=== PATIENT | female | born 1970 | race Caucasian/White ===

== ENCOUNTER 2017-05-11 15:53 | Emergency (ER) | payer MEDICARE, MEDICAID ==
[~2017-05-11] VITALS: Ht 162.6 cm; Wt 89.4 kg
[~2017-05-11 15:53] MED LIST: ACYC400T PO; ALPR1TAB2 PO; ALPR1TAB6 PO; BUSP15TA PO; CARB200T4 PO; CARV25TA2 PO; CYCL10TA2 PO; ESOM40CA PO; FLUT16SP NS; GABA-586 PO; HYDR-2762 PO; INSU300I SQ; LEVO150T5 PO; LEVO175T5 PO; LEVO500T59 PO; LIDO30CR TP; METF-620 PO; METO10TA PO; METO10TA81 PO; MIDO5TAB PO; MONT10TA9 PO; MULT-557 PO; OMEP20TA8 PO; ONDA4TAB12 PO; ONDA8TAB9 PO; OXYC-323 PO; OXYC1TAB7 PO; POLY17PO29 PO; PRAM0.25 PO; SERT100T8 PO; SUCR1TAB PO; TRAZ50TA15 PO
[2017-05-11 16:31] LABS: BASO % 1 % (0-3); EOS % 1 % (0-3); HEMOGLOBIN 11.6 g/dL (12.0-15.5); LYMPH # 1.5 x10^3/uL (1.0-4.8); LYMPH % 23 % (24-48); MEAN CORPUSCULAR HEMOGLOBIN 32 pg (25-35); MEAN CORPUSCULAR HGB CONC 35 g/dL (31-37); MEAN CORPUSCULAR VOLUME 92 fL (79-100); MONO % 5 % (0-9); NEUT % 71 % (31-73); PLATELET COUNT 209 x10^3/uL (140-400); RED BLOOD COUNT 3.61 x10^6/uL (3.50-5.40); RED CELL DISTRIBUTION WIDTH 12.6 % (11.5-14.5); WHITE BLOOD COUNT 6.6 x10^3/uL (4.0-11.0)
[2017-05-11 16:45] LABS: CALCIUM 8.4 mg/dL (8.5-10.1); CREATININE 0.9 mg/dL (0.6-1.0); GFR 66.8; POTASSIUM 3.7 mmol/L (3.5-5.1)
[2017-05-11 16:51] LABS: ALBUMIN 3.4 g/dL (3.4-5.0); DIRECT BILIRUBIN 0.1 mg/dL (0.0-0.2); MAGNESIUM 1.6 mg/dL (1.8-2.4); TOTAL BILIRUBIN 0.3 mg/dL (0.2-1.0); TOTAL PROTEIN 6.8 g/dL (6.4-8.2)
[2017-05-11 16:58] LABS: CKMB MASS 1.8 ng/mL (0.0-3.6)
--- NOTE | 2017-05-11 17:04 | RAD ---
AP chest radiograph 05/11/2017 Indication: Nontraumatic chest pain, asthma. Comparison: Chest 07/31/2014 Findings: Left chest wall cardiac connection device right atrial, right ventricular and coronary sinus pacer leads. Cardiac and mediastinal silhouettes are within normal limits. No pleural effusion, pneumothorax or focal consolidation. Impression: No acute cardiopulmonary abnormality.
[2017-05-11] MEDS ORDERED: ONDANSETRON PF 4 MG/2 ML VIAL. IV ONE (18:00)
--- NOTE | 2017-05-11 18:39 | PHYS DOC ---
Past Medical History Past Medical History: Arrhythmia, CHF, Hypotension Additional Past Medical Histor: Glaucoma Past Surgical History: Cholecystectomy, Hysterectomy, Pacemaker, Other Additional Past Surgical Histo: Bairiatric Surgery 06/2015,Mesh placed after hyster.for hernia,abd reconstru Alcohol Use: None Drug Use: None Adult General Chief Complaint Chief Complaint: CHEST PAIN HPI HPI Patient is a 47 year old female who presents with an episode that began about 1 :30 today of shortness of air, lightheadedness, heart pounding, and a "tight ache" in the middle of her back and on the left side of the back. The patient has a history of having a pacemaker defibrillator placed in 2008 or 2009, she has that checked regularly. She has never had an ND. She was actually seen in the doctor's office today for tooth pain with this whole thing started and ended up being brought here by EMS. The patient's symptoms of shortness of air, lightheadedness, and heart pounding lasted about 25 minutes but her pain in her left mid back lasted "a fleeting moment". She did not have any pain in the anterior of her chest at all. She has not had this type of pain before that she has had these episodes of shortness of air, lightheadedness, and heart pounding , which actually occurred before she got a pacemaker in the first place. Patient is status post bariatric surgery, [facility]. PCP Dr. Molina Carpenter Mold Dr. Garcia Review of Systems Review of Systems Constitutional: Denies fever or chills [] Eyes: Denies change in visual acuity, redness, or eye pain [] HENT: Denies nasal congestion or sore throat [] Respiratory: As in history of present illness Cardiovascular: As in history of present illness GI: Denies abdominal pain, nausea, vomiting, bloody stools or diarrhea [] : Denies dysuria or hematuria [] Musculoskeletal: Denies back pain or joint pain [] Integument: Denies rash or skin lesions [] Neurologic: Denies headache, focal weakness or sensory changes [] Current Medications Current Medications Current Medications Medications (Trade) Dose Ordered Sig/Benigno Start Time Stop Time Status Last Admin Dose Admin Ondansetron HCl (Zofran) 4 mg 1X ONCE 05/11/17 18:00 05/11/17 18:01 DC 05/11/17 18:02 4 MG Allergies Allergies Allergies Coded Allergies Type Severity Reaction Last Updated Verified Iodinated Contrast- Oral and IV Dye Allergy Severe Anaphylaxis 05/20/16 Yes exenatide Allergy Severe Hives, nausea/vomiting 05/20/16 Yes adhesive tape Allergy Mild Rash 05/20/16 Yes Sulfa (Sulfonamide Antibiotics) Adverse Reaction Intermediate Nausea and Vomiting 05/20/16 Yes codeine Adverse Reaction Intermediate Nausea and Vomiting 05/19/16 Yes Physical Exam Physical Exam Constitutional: Well developed, well nourished, no acute distress, non-toxic appearance. Warm and dry, vital signs stable, alert and mentating normally. HENT: Normocephalic, atraumatic, bilateral external ears normal, nose normal. [ ] Eyes: conjunctiva normal, no discharge. [] Neck: Normal range of motion, no stridor. [] Cardiovascular:Heart rate regular rhythm, no murmur [] Lungs & Thorax: Bilateral breath sounds clear to auscultation [] Abdomen: Bowel sounds normal, soft, no tenderness, no masses, no pulsatile masses. [] Skin: Warm, dry, no erythema, no rash. [] Back: No tenderness, no CVA tenderness. [] Extremities: No tenderness, no cyanosis, no clubbing, ROM intact, no edema. [] Neurologic: Alert and oriented X 3, normal motor function, normal sensory function, no focal deficits noted. [] Current Patient Data Vital Signs Vital Signs Date Time Temp Pulse Resp B/P (MAP) Pulse Ox O2 Delivery O2 Flow Rate FiO2 05/11/17 18:40 50 18 154/70 (98) 99 Room Air 05/11/17 16:10 97.9 97.9 Lab Values Laboratory Tests Test 05/11/17 16:00 White Blood Count 6.6 x10^3/uL (4.0-11.0) Red Blood Count 3.61 x10^6/uL (3.50-5.40) Hemoglobin 11.6 g/dL (12.0-15.5) L Hematocrit 33.0 % (36.0-47.0) L Mean Corpuscular Volume 92 fL (79-100) Mean Corpuscular Hemoglobin 32 pg (25-35) Mean Corpuscular Hemoglobin Concent 35 g/dL (31-37) Red Cell Distribution Width 12.6 % (11.5-14.5) Platelet Count 209 x10^3/uL (140-400) Neutrophils (%) (Auto) 71 % (31-73) Lymphocytes (%) (Auto) 23 % (24-48) L Monocytes (%) (Auto) 5 % (0-9) Eosinophils (%) (Auto) 1 % (0-3) Basophils (%) (Auto) 1 % (0-3) Neutrophils # (Auto) 4.7 x10^3uL (1.8-7.7) Lymphocytes # (Auto) 1.5 x10^3/uL (1.0-4.8) Monocytes # (Auto) 0.3 x10^3/uL (0.0-1.1) Eosinophils # (Auto) 0.0 x10^3/uL (0.0-0.7) Basophils # (Auto) 0.0 x10^3/uL (0.0-0.2) Sodium Level 141 mmol/L (136-145) Potassium Level 3.7 mmol/L (3.5-5.1) Chloride Level 106 mmol/L (98-107) Carbon Dioxide Level 24 mmol/L (21-32) Anion Gap 11 (6-14) Blood Urea Nitrogen 15 mg/dL (7-20) Creatinine 0.9 mg/dL (0.6-1.0) Estimated GFR (Cockcroft-Gault) 66.8 Glucose Level 110 mg/dL (70-99) H Calcium Level 8.4 mg/dL (8.5-10.1) L Magnesium Level 1.6 mg/dL (1.8-2.4) L Total Bilirubin 0.3 mg/dL (0.2-1.0) Direct Bilirubin 0.1 mg/dL (0.0-0.2) Aspartate Amino Transferase (AST) 17 U/L (15-37) Alanine Aminotransferase (ALT) 19 U/L (14-59) Alkaline Phosphatase 128 U/L (46-116) H Creatine Kinase 111 U/L (26-192) Creatine Kinase MB (Mass) 1.8 ng/mL (0.0-3.6) Creatine Kinase MB Relative Index 1.6 % (0-4) Troponin I Quantitative < 0.017 ng/mL (0.000-0.055) CB-Xdh-R-Type Natriuretic Peptide 680 pg/mL (0-124) H Total Protein 6.8 g/dL (6.4-8.2) Albumin 3.4 g/dL (3.4-5.0) Laboratory Tests 05/11/17 16:00 Laboratory Tests 05/11/17 16:00 EKG EKG 12-lead EKG read by me. Fully paced. Heart rate 52. Prolonged QRS consistent with paced rhythm. There are no ST elevations or depressions. No STEMI. 1555 [] Radiology/Procedures Radiology/Procedures One view portable chest x-ray read by the radiologist. Heart size is normal, lungs clear, pacemaker/defibrillator is noted. No acute cardiopulmonary mildly. [] Course & Med Decision Making Course & Med Decision Making Pertinent Labs and Imaging studies reviewed. (See chart for details) 47-year-old female presents with a nonspecific episode of short of air, lightheaded, heart pounding, with a very brief episode of left upper back pain that lasted "a fleeting moment". She does not have a history of coronary artery disease, she does have a pacemaker defibrillator. Patient's symptoms are largely resolved on arrival to ED. Labs, EKG unremarkable. However, she does have low magnesium. This could be from her bariatric surgery. I doubt if this is related to her symptoms but I will advise her to replace that. 1830 recheck patient. She sitting up on the bed, states that she feels better than she did when she came in, she has not had any specific treatment other than a dose of Zofran. Discussed reassuringly normal findings with the patient. I believe she is stable for discharge. See instructions for plan. [] Dragon Disclaimer Dragon Disclaimer This electronic medical record was generated, in whole or in part, using a voice recognition dictation system. Departure Departure Impression: Primary Impression: Light-headed feeling Disposition: 01 HOME, SELF-CARE Condition: IMPROVED Referrals: CHANDU MOLINA MD (PCP) Additional Instructions: As we discussed, tests in the emergency department today were all normal except that your magnesium is a little bit low. Check with your doctor on whether you should be replacing her magnesium due to your previous surgery. If your symptoms persist, follow-up with your pull worker. FARIDEH MCCLENDON MD May 11, 2017 18:39
[2017-05-11 18:40] VITALS: BP 154/70
--- NOTE | 2017-05-12 00:39 | EKG ---
[facility] [address] [place] [address] Test Date: 2017-05-11 Test Time: 15:55:54 Pat Name: TYLER PEÑA Department: Room: Gender: F Stator Connector: : 1970 Requested By: FARIDEH MCCLENDON Order Number: [id number] Reading MD: Frank Ray Measurements Intervals [place] Rate: 52 P: 0 SD: 178 QRS: -34 QRSD: 96 T: 103 QT: 478 QTc: 451 Interpretive Statements PT IN SINUS RHYTHM WITH VENTRICULAR PACING TRACKING NORMALLY Electronically Signed On 05-12-2017 17:02:02 CDT by Frank Ray
== END 2017-05-11 18:56 | disposition home or self-care (01) ==
LOC: ER 15:53
DX: R42 Dizziness and giddiness (principal); R06.02 Shortness of breath; K08.89 Other specified disorders of teeth and supporting structures; I50.9 Heart failure, unspecified; J45.909 Unspecified asthma, uncomplicated; Z95.0 Presence of cardiac pacemaker; Z98.84 Bariatric surgery status; Z98.890 Other specified postprocedural states; Z88.5 Allergy status to narcotic agent; Z88.2 Allergy status to sulfonamides; Z88.8 Allergy status to other drugs, medicaments and biological substances; Z91.041 Radiographic dye allergy status
CPT/HCPCS: 36415; 71010; 80048; 80076; 82553; 83735; 83880; 84484; 85027; 93005; 96374; 99285; J2405

== ENCOUNTER → 2017-06-11 | Outpatient (CLI) | payer BC, MEDICAID ==
--- NOTE | 2017-06-11 14:31 | CARD ---
APPROVED REPORT EXAM: Two-dimensional and M-mode echocardiogram with Doppler and color Doppler. Other Information Quality : GoodHR: 59bpm Rhythm : Bradycardia INDICATION NICM 2D DIMENSIONS RVDd3.3 (2.9-3.5cm)Left Atrium(2D)4.6 (1.6-4.0cm) IVSd0.8 (0.7-1.1cm)Aortic Root(2D)3.0 (2.0-3.7cm) LVDd7.1 (3.9-5.9cm)LVOT Diameter1.2 (1.8-2.4cm) PWd0.8 (0.7-1.1cm)LVDs5.5 (2.5-4.0cm) FS (%) 23.0 %SV120.1 ml LVEF(%)44.9 (>50%) M-Mode DIMENSIONS LVDd5.62 (4.0-5.6cm) Aortic Valve LVOT Peak Ryan.102.4cm/s Mitral Valve MV E Puwgjgbm434.0cm/sMV E Peak Gr.5mmHg MV DECEL [id number] A Osxazeys463.6cm/s MV E Mean Gr.2mmHgE/A Ratio0.9 MV A [id number] Planimetry3.17cm2 Pulmonary Valve PV Peak Eavpqjkx048.0cm/s Tricuspid Valve TR P. Djcuchko025ey/sTR Peak Gr.23mmHg Pulmonary Vein S1 Mkfbwkok28.8cm/sD2 Mkpdojls35.3cm/s PVa hpmfmisd43ckaf LEFT VENTRICLE The Left Ventricle is mildly dilated. There is normal left ventricular wall thickness. Left ventricle systolic function is mildly impaired. The Ejection Fraction is 40-45%. There is mild global hypokine sis of the left ventricle. Transmitral Doppler flow pattern is abnormal. No left ventricle thrombus n oted on this study. RIGHT VENTRICLE The right ventricle is normal size. There is normal right ventricular wall thickness. The right ventr icular systolic function is normal. There are pacemaker and defibrillator leads in the right ventricl e. ATRIA The left atrium is mildly dilated. The right atrium size is normal. The interatrial septum is intact with no evidence for an atrial septal defect or patent foramen ovale as noted on 2-D or Doppler imagi ng. AORTIC VALVE The aortic valve is mildly sclerotic. The aortic valve is trileaflet. Doppler and Color Flow revealed no significant aortic regurgitation. There is no significant aortic valvular stenosis. MITRAL VALVE The mitral valve leaflets are thickened. There is no evidence of mitral valve prolapse. There is no m itral valve stenosis. Doppler and Color Flow revealed trace mitral regurgitation. TRICUSPID VALVE Doppler and Color Flow revealed trace tricuspid regurgitation. The pulmonary artery systolic pressure is estimated at 28 mmHg. There is no pulmonary hypertension. PULMONIC VALVE The pulmonary valve is not well visualized but appears to open adequately. Doppler and Color Flow rev ealed no pulmonic valvular regurgitation. There is no pulmonic valvular stenosis by spectral Doppler. GREAT VESSELS The aortic root is normal in size. The ascending aorta is normal in size. The pulmonary artery is nor mal. The IVC is normal in size and collapses >50% with inspiration. PERICARDIAL EFFUSION There is no evidence of significant pericardial effusion. Critical Notification Critical Value: No <Conclusion> Left ventricle systolic function is mildly impaired. The Ejection Fraction is 40-45%. Trace mitral regurgitation. Trace tricuspid regurgitation. The pulmonary artery systolic pressure is estimated at 28 mmHg. There is no evidence of significant pericardial effusion.
== END | disposition home or self-care (01) ==
LOC: ECHO 12:57
PROVIDERS: ATTEND Internal Medicine Cardiovascular Disease
DX: I34.0 Nonrheumatic mitral (valve) insufficiency (principal); I07.1 Rheumatic tricuspid insufficiency
CPT/HCPCS: 93306

== ENCOUNTER 2017-09-24 09:16 | Emergency (ER) | payer BC, MEDICAID ==
[~2017-09-24] VITALS: Ht 160 cm; Wt 89.4 kg
[2017-09-24 09:32] VITALS: BP 163/71
[2017-09-24] MEDS ORDERED: FLUT9.9S NS (09:54)
[2017-09-24] MEDS ORDERED: GUAI-108 PO (09:54)
[2017-09-24] MEDS ORDERED: MOXI400T PO (09:54)
[2017-09-24] MEDS ORDERED: OXYC-323 PO (09:55)
--- NOTE | 2017-09-24 10:00 | PHYS DOC ---
Past Medical History Past Medical History: Arrhythmia, CHF, Hypotension Additional Past Medical Histor: Glaucoma Past Surgical History: Cholecystectomy, Hysterectomy, Pacemaker, Other Additional Past Surgical Histo: Bairiatric Surgery 06/2015,Mesh placed after hyster.for hernia,abd reconstru Alcohol Use: None Drug Use: None Adult General Chief Complaint Chief Complaint: DENTAL PROBLEM HPI HPI Patient is a pleasant 47-year-old female with a known history of chronic sinusitis and sinus problems who complains of dentalgia and sinus pressure to the. She has been on 2 short course of antibiotics to include amoxicillin and Ceftinir over the last 6 weeks. She typically has improvement of her symptoms at the conclusion of these anabiotic courses. Her symptoms began today aggressively worse over the left frontal portion of her face. She describes as a dull ache and throb as radiation from the top of her teeth to the left side of the nose. She has been printed discharge without fevers or chills. On occasion because she is so anxious she will get some palpitations which are not new but associated with these pains. She has an AICD placed likely secondary to sick sinus syndrome diagnosed after she was having some dizzy spells. She's been symptom free at that point. She denies any trauma to her face, denies any problems swallowing, denies any ear pain, denies any cough or other symptoms. Patient's pain at this time is about a 4 of 10 Review of Systems Review of Systems Constitutional: Denies fever or chills [] Eyes: Denies change in visual acuity, redness, or eye pain [] HENT: Patient does have complaint of significant nasal congestion described as purulent with sinus pressure without swelling. Respiratory: Denies cough or shortness of breath [] Cardiovascular: No additional information not addressed in HPI [] GI: Denies abdominal pain, nausea, vomiting, bloody stools or diarrhea [] : Denies dysuria or hematuria [] Musculoskeletal: Denies back pain or joint pain [] Integument: Denies rash or skin lesions [] Neurologic: Denies headache, focal weakness or sensory changes [] Endocrine: Denies polyuria or polydipsia [] All other systems were reviewed and found to be within normal limits, except as documented in this note. Allergies Allergies Allergies Coded Allergies Type Severity Reaction Last Updated Verified Iodinated Contrast- Oral and IV Dye Allergy Severe Anaphylaxis 05/20/16 Yes exenatide Allergy Severe Hives, nausea/vomiting 05/20/16 Yes adhesive tape Allergy Mild Rash 05/20/16 Yes Sulfa (Sulfonamide Antibiotics) Adverse Reaction Intermediate Nausea and Vomiting 05/20/16 Yes codeine Adverse Reaction Intermediate Nausea and Vomiting 05/19/16 Yes Physical Exam Physical Exam The patient's vital signs recorded on the chart patient and be hypertensive which is not new for patient. Constitutional: Well developed, well nourished, no acute distress, non-toxic appearance. [] HENT: Normocephalic, atraumatic, bilateral external ears normal, oropharynx moist, no oral exudates, patient has tenderness to palpation over the frontal sinus on the left. She has a mucopurulent discharge noted within the nasal passage. She has marked dental caries of the upper dentition between teeth 7 and 12 with some mild erosion of the enamel without gingival inflammation or signs of abscess. She has tenderness to palpation of her palpitation of these teeth to percussion there is no swelling to the face or area of erythema of the skin[] Eyes: PERRLA, EOMI, conjunctiva normal, no discharge. [] Neck: Normal range of motion, no tenderness, supple, no stridor. Patient images no cervical lymphadenopathy [] Cardiovascular:Heart rate regular rhythm, no murmur [] Lungs & Thorax: Bilateral breath sounds clear to auscultation [] Skin: Warm, dry, no erythema, no rash. [] Extremities: No tenderness, no cyanosis, no clubbing, ROM intact, no edema. [] Neurologic: Alert and oriented X 3, normal motor function, normal sensory function, no focal deficits noted. Patient images normal speech[] Psychologic: Affect normal, judgement normal, mood normal. [] Current Patient Data Vital Signs Vital Signs Date Time Temp Pulse Resp B/P (MAP) Pulse Ox O2 Delivery O2 Flow Rate FiO2 09/24/17 09:32 98.0 77 16 163/71 (101) 98 Room Air 98.0 EKG EKG []Recent EKG interpreted by me at 9:57 AM 09/24/2017 demonstrates a paced rhythm with a heart rate of 56. There is no ST segment or T-wave changes consistent with acute coronary ischemia Radiology/Procedures Radiology/Procedures [] Course & Med Decision Making Course & Med Decision Making Pertinent Labs and Imaging studies reviewed. (See chart for details) []Patient presents with sinusitis and dentalgia associated with dental caries and chronic sinusitis. She will placed on appropriate antibiotics and close follow-up with her primary care physician and ENT referral. She is nontoxic in appearance is no evidence of abscess within the face or dental origin infection out because a local abscess within the gingival line. Patient's EKG is unremarkable is asymptomatically at this time Dragon Disclaimer Dragon Disclaimer This electronic medical record was generated, in whole or in part, using a voice recognition dictation system. Departure Departure Impression: Primary Impression: Sinusitis chronic, frontal Additional Impression: Palpitations Disposition: HOME, SELF-CARE Condition: STABLE Referrals: CHANDU MOLINA MD (PCP) CRISTIANO FLETCHER MD Patient Instructions: Dental Pain, Palpitations, Sinusitis Additional Instructions: discharge: I've spoken with the patient and/or caregivers. I've explained the patient's condition, diagnosis and treatment plan based on information available to me at this time. I've answered the patient's and/or caregivers questions and addressed any concerns. The patient and/or caregivers have a good understanding the patient's diagnosis, condition and treatment plan as can be expected at this point. Vital signs have been stabilized. The patient's condition is stable for discharge from the emergency department. The patient will pursue further outpatient evaluation with her primary care provider or other designated consulting physician as outlined in the discharge instructions. Patient and/or caregivers are agreeable to this plan of care and follow-up instructions have been explained in detail. The patient and/or caregivers have received these instructions in written format and expressed understanding of these discharge instructions. The patient and her caregivers are aware that if any significant change in condition or worsening of symptoms should prompt him to immediately return to this of the closest emergency department. If an emergent department is not readily available I would encourage him to call 911. Scripts Oxycodone/Apap 5-325 (PERCOCET 5-325 MG TABLET) 1 Each Tablet 1-2 TAB PO Q4-6HRS, #10 TAB Prov: KELLY SOW MD 09/24/17 Guaifenesin/Dextromethorphan (MUCINEX DM ER 600-30 MG TABLET) 1 Each Tab.er.12h 1 TAB PO PRN Q12HRS, #20 TAB Prov: KELLY SOW MD 09/24/17 Fluticasone Propionate (Flonase Allergy Relief) 9.9 Ml [place].susp 2 SPRAYS NS DAILY for 7 Days, BOTTLE Prov: KELLY SOW MD 09/24/17 Moxifloxacin Hcl (AVELOX) 400 Mg Tablet 1 TAB PO DAILY, #10 TAB Prov: KELLY SOW MD 09/24/17 Problem Qualifiers KELLY SOW MD Sep 24, 2017 10:00
--- NOTE | 2017-09-24 10:36 | EKG ---
[facility] [address] [place] [address] Test Date: 2017-09-24 Test Time: 09:57:23 Pat Name: TYLER PEÑA Department: Room: Gender: F Merchant Mariner: : 1970 Requested By: KELLY SOW Order Number: [id number] Reading MD: Measurements Intervals [place] Rate: 56 P: 0 NE: 172 QRS: -37 QRSD: 24 T: -28 QT: 422 QTc: 409 Interpretive Statements SINUS RHYTHM ABNORMAL LEFT AXIS DEVIATION LVH WITH REPOLARIZATION ABNORMALITY ABNORMAL ECG No previous ECG available for comparison
== END 2017-09-24 10:50 | disposition home or self-care (01) ==
LOC: ER 09:16
DX: J32.1 Chronic frontal sinusitis (principal); R00.2 Palpitations; K02.9 Dental caries, unspecified; I50.9 Heart failure, unspecified; H40.9 Unspecified glaucoma; I95.9 Hypotension, unspecified; Z95.0 Presence of cardiac pacemaker; Z88.2 Allergy status to sulfonamides; Z95.810 Presence of automatic (implantable) cardiac defibrillator; Z90.49 Acquired absence of other specified parts of digestive tract; Z90.710 Acquired absence of both cervix and uterus; Z91.041 Radiographic dye allergy status; Z88.8 Allergy status to other drugs, medicaments and biological substances; Z88.5 Allergy status to narcotic agent; Z91.048 Other nonmedicinal substance allergy status
CPT/HCPCS: 93005; 99283-25

== ENCOUNTER → 2017-12-21 | Day surgery (SDC) | payer BC, MEDICAID ==
[~2017-12-21] MED LIST changes: -ACYC400T PO; -ALPR1TAB2 PO; -ALPR1TAB6 PO; -BUSP15TA PO; -CARB200T4 PO; -CARV25TA2 PO; -CYCL10TA2 PO; -ESOM40CA PO; -FLUT16SP NS; -GABA-586 PO; -HYDR-2762 PO; -INSU300I SQ; +IV RINGERS,LACTATED 1000ML 1,000 ML IV; -LEVO150T5 PO; -LEVO175T5 PO; -LEVO500T59 PO; -LIDO30CR TP; -METF-620 PO; -METO10TA PO; -METO10TA81 PO; -MIDO5TAB PO; -MONT10TA9 PO; -MULT-557 PO; -OMEP20TA8 PO; -ONDA4TAB12 PO; -ONDA8TAB9 PO; -OXYC-323 PO; -OXYC1TAB7 PO; -POLY17PO29 PO; -PRAM0.25 PO; +PROPOFOL 20 ML IV; -SERT100T8 PO; -SUCR1TAB PO; -TRAZ50TA15 PO
== END ==
LOC: ENDOS 11:45
DX: K21.0 Gastro-esophageal reflux disease with esophagitis (principal); D50.9 Iron deficiency anemia, unspecified; I25.10 Atherosclerotic heart disease of native coronary artery without angina pectoris; I11.0 Hypertensive heart disease with heart failure; I50.9 Heart failure, unspecified; E11.9 Type 2 diabetes mellitus without complications; E78.5 Hyperlipidemia, unspecified; F32.9 Major depressive disorder, single episode, unspecified; F41.9 Anxiety disorder, unspecified; I42.9 Cardiomyopathy, unspecified; E03.9 Hypothyroidism, unspecified; Z85.42 Personal history of malignant neoplasm of other parts of uterus; Z88.2 Allergy status to sulfonamides; Z88.5 Allergy status to narcotic agent; Z95.0 Presence of cardiac pacemaker; M19.90 Unspecified osteoarthritis, unspecified site; Z90.49 Acquired absence of other specified parts of digestive tract; Z82.49 Family history of ischemic heart disease and other diseases of the circulatory system
CPT/HCPCS: 43235; J2704

== ENCOUNTER 2018-01-31 16:47 | Inpatient (IN) | payer BC, MEDICAID ==
[2018-01-31 17:13] LABS: ADD MAN DIFF? NO
[2018-01-31 17:15] LABS: BASO % 1 % (0-3); EOS % 1 % (0-3); HEMATOCRIT 22.7 % (36.0-47.0); HEMOGLOBIN 7.1 g/dL (12.0-15.5); LYMPH # 1.3 x10^3/uL (1.0-4.8); LYMPH % 36 % (24-48); MEAN CORPUSCULAR HEMOGLOBIN 22 pg (25-35); MEAN CORPUSCULAR HGB CONC 31 g/dL (31-37); MEAN CORPUSCULAR VOLUME 70 fL (79-100); MONO # 0.4 x10^3/uL (0.0-1.1); MONO % 10 % (0-9); NEUT % 53 % (31-73); PLATELET COUNT 238 x10^3/uL (140-400); RED BLOOD COUNT 3.27 x10^6/uL (3.50-5.40); RED CELL DISTRIBUTION WIDTH 17.4 % (11.5-14.5); WHITE BLOOD COUNT 3.8 x10^3/uL (4.0-11.0)
[2018-01-31 17:30] LABS: ANION GAP 8 (6-14); BLOOD UREA NITROGEN 18 mg/dL (7-20); BUN/CREATININE RATIO 20 (6-20); CALCIUM 8.3 mg/dL (8.5-10.1); CARBON DIOXIDE 26 mmol/L (21-32); CHLORIDE 107 mmol/L (98-107); CREATININE 0.9 mg/dL (0.6-1.0); GFR 66.8; GLUCOSE 110 mg/dL (70-99); POTASSIUM 3.7 mmol/L (3.5-5.1); SODIUM 141 mmol/L (136-145)
[2018-01-31 17:35] LABS: ALBUMIN 3.3 g/dL (3.4-5.0); ALBUMIN/GLOBULIN RATIO 0.9 (1.0-1.7); ALK PHOS 145 U/L (46-116); ALT (SGPT) 27 U/L (14-59); AST (SGOT) 18 U/L (15-37); TOTAL BILIRUBIN 0.3 mg/dL (0.2-1.0)
[2018-01-31 17:37] LABS: ANISOCYTOSIS SLIGHT; HYPOCHROMIA MOD; MICROCYTOSIS MARKED; PLT ESTIMATE ADEQUATE (ADEQUATE); POLYCHROMASIA SLIGHT
[2018-01-31 18:43] LABS: TROPONINI < 0.017 ng/mL (0.000-0.055)
[2018-01-31] MEDS ORDERED: ONDANSETRON PF 4 MG/2 ML VIAL. IV (19:30)
[2018-01-31] MEDS ORDERED: ALPRAZolam 1 MG TABLET PO (21:00)
[2018-01-31] MEDS ORDERED: NON FORMULARY ITEM (Albuterol Sulfate (Proair Hfa Inhaler) 1 PUFF) INH (21:00)
[2018-01-31] MEDS ORDERED: ALBUTEROL SULFATE 8GM INHALER. IH (21:00)
[2018-01-31] MEDS ORDERED: traZODone 50 MG TABLET. PO (21:00)
[2018-01-31] MEDS ORDERED: ALBUTEROL SULFATE 2.5 MG/3 ML NEBU. NEB (21:15)
[2018-01-31] MEDS: AMOXICILLIN 250 MG CAPSULE. PO (21:59)
[2018-01-31] MEDS: DULoxetine HCL 30 MG CAPSULE.DR PO (21:59)
[2018-01-31] MEDS: diphenhydrAMINE 50 MG/ML VIAL IVP (22:43)
[2018-01-31] MEDS: ACETAMINOPHEN 325 MG TABLET. PO (22:43)
[2018-01-31 23:09] LABS: IMMEDIATE SPIN CROSSMATCH 1 1
[2018-02-01] MEDS: LEVOTHYROXINE 150 MCG TABLET PO (06:16)
[2018-02-01 08:22] LABS: ADD MAN DIFF? NO
[2018-02-01 08:28] LABS: BASO % 1 % (0-3); EOS # 0.1 x10^3/uL (0.0-0.7); EOS % 2 % (0-3); HEMATOCRIT 24.6 % (36.0-47.0); LYMPH # 1.2 x10^3/uL (1.0-4.8); LYMPH % 35 % (24-48); MEAN CORPUSCULAR HEMOGLOBIN 23 pg (25-35); MEAN CORPUSCULAR HGB CONC 32 g/dL (31-37); MEAN CORPUSCULAR VOLUME 71 fL (79-100); MONO # 0.3 x10^3/uL (0.0-1.1); MONO % 9 % (0-9); NEUT # 1.8 x10^3uL (1.8-7.7); NEUT % 54 % (31-73); PLATELET COUNT 188 x10^3/uL (140-400); RED BLOOD COUNT 3.48 x10^6/uL (3.50-5.40); RED CELL DISTRIBUTION WIDTH 17.9 % (11.5-14.5); WHITE BLOOD COUNT 3.3 x10^3/uL (4.0-11.0)
[2018-02-01] MEDS: PANTOPRAZOLE 40 MG TABLET.DR. PO (09:51)
[2018-02-01] MEDS: ACYCLOVIR 200 MG CAPSULE. PO (09:51)
[2018-02-01] MEDS: CETIRIZINE HCL 10 MG TABLET. PO (09:51)
[2018-02-01] MEDS: guaiFENesin DM 600/30MG 1 TAB TAB.ER.12H PO (09:51)
[2018-02-01] MEDS: AMOXICILLIN 250 MG CAPSULE. PO ×3 (09:51→20:28)
[2018-02-01] MEDS: FLUTICASONE 50MCG/NASAL SPRAY 16GM BOTTLE. NS (09:54)
[2018-02-01] MEDS: HYDROcodone/APAP 5/325MG 1 TAB TABLET PO ×2 (11:03→20:30)
[2018-02-01] MEDS: IRON SUCROSE COMPLEX 500 MG in IV NORMAL SALINE 250ML 250 ML IV (16:07)
[2018-02-01 17:26] LABS: BILIRUBIN,URINE NEGATIVE (NEG); CLARITY,URINE CLEAR; COLOR,URINE YELLOW; GLUCOSE,URINE NEGATIVE (NEG); NITRITE,URINE NEGATIVE (NEG); PH,URINE 6.5; PROTEIN,URINE NEGATIVE (NEG-TRACE)
[2018-02-01 17:44] LABS: BACTERIA,URINE 0 /HPF (0-FEW); RBC,URINE 0 /HPF (0-2); SQUAMOUS EPITHELIAL CELL,UR FEW /LPF; WBC,URINE 0 /HPF (0-4)
[2018-02-01] MEDS: DULoxetine HCL 30 MG CAPSULE.DR PO (20:28)
[2018-02-01] MEDS: LACTOBACILLUS RHAMNOSUS GG 1 CAPSULE. PO (20:29)
[2018-02-01 22:48] LABS: FOLATE 13.89 ng/ml (3.2-20.0)
[2018-02-01 22:48] LABS: VITAMIN-B12 192 pg/mL (247-911)
[2018-02-02] MEDS: LEVOTHYROXINE 150 MCG TABLET PO (06:12)
[2018-02-02 06:35] LABS: HEMATOCRIT 26.7 % (36.0-47.0); HEMOGLOBIN 8.5 g/dL (12.0-15.5); MEAN CORPUSCULAR HEMOGLOBIN 23 pg (25-35); MEAN CORPUSCULAR HGB CONC 32 g/dL (31-37); MEAN CORPUSCULAR VOLUME 71 fL (79-100); PLATELET COUNT 229 x10^3/uL (140-400); RED BLOOD COUNT 3.74 x10^6/uL (3.50-5.40); RED CELL DISTRIBUTION WIDTH 18.6 % (11.5-14.5)
[2018-02-02 07:15] LABS: ANION GAP 10 (6-14); BLOOD UREA NITROGEN 14 mg/dL (7-20); CALCIUM 8.5 mg/dL (8.5-10.1); CARBON DIOXIDE 27 mmol/L (21-32); CHLORIDE 105 mmol/L (98-107); CREATININE 0.7 mg/dL (0.6-1.0); GFR 89.3; GLUCOSE 108 mg/dL (70-99); POTASSIUM 3.9 mmol/L (3.5-5.1); SODIUM 142 mmol/L (136-145)
[2018-02-02] MEDS: FLUTICASONE 50MCG/NASAL SPRAY 16GM BOTTLE. NS (08:50)
[2018-02-02] MEDS: LACTOBACILLUS RHAMNOSUS GG 1 CAPSULE. PO (08:51)
[2018-02-02] MEDS: AMOXICILLIN 250 MG CAPSULE. PO (08:51)
[2018-02-02] MEDS: guaiFENesin DM 600/30MG 1 TAB TAB.ER.12H PO (08:51)
[2018-02-02] MEDS: ACYCLOVIR 200 MG CAPSULE. PO (08:51)
[2018-02-02] MEDS: CETIRIZINE HCL 10 MG TABLET. PO (08:51)
[2018-02-02] MEDS: PANTOPRAZOLE 40 MG TABLET.DR. PO (08:53)
[2018-02-02] MEDS: CYANOCOBALAMIN (VITAMIN B-12) 1,000 MCG/ML VIAL IM (11:07)
== END 2018-02-02 12:00 | disposition home or self-care (01) | DRG 809 ==
LOC: ER 16:47 → 5 SOUTH 17:45
PROC: 30233N1 Transfusion of Nonautologous Red Blood Cells into Peripheral Vein, Percutaneous Approach (ICD-10-PCS; principal; 2018-01-31)
DX: D61.818 Other pancytopenia (principal); I42.9 Cardiomyopathy, unspecified; I11.0 Hypertensive heart disease with heart failure; I50.9 Heart failure, unspecified; D50.9 Iron deficiency anemia, unspecified; E03.9 Hypothyroidism, unspecified; E11.9 Type 2 diabetes mellitus without complications; K62.5 Hemorrhage of anus and rectum; E78.5 Hyperlipidemia, unspecified; K29.70 Gastritis, unspecified, without bleeding; F32.9 Major depressive disorder, single episode, unspecified; H40.9 Unspecified glaucoma; I25.10 Atherosclerotic heart disease of native coronary artery without angina pectoris; K08.89 Other specified disorders of teeth and supporting structures; K21.9 Gastro-esophageal reflux disease without esophagitis; K43.2 Incisional hernia without obstruction or gangrene; K64.9 Unspecified hemorrhoids; Z82.49 Family history of ischemic heart disease and other diseases of the circulatory system; Z85.43 Personal history of malignant neoplasm of ovary; Z83.3 Family history of diabetes mellitus; Z90.49 Acquired absence of other specified parts of digestive tract; Z90.710 Acquired absence of both cervix and uterus; Z91.041 Radiographic dye allergy status; Z88.5 Allergy status to narcotic agent; Z88.2 Allergy status to sulfonamides; Z88.8 Allergy status to other drugs, medicaments and biological substances; Z91.048 Other nonmedicinal substance allergy status
CPT/HCPCS: 36415; 71045; 80048; 80053; 81001; 82607; 82746; 84484; 85025; 85027; 86850; 86900; 86901; 86920; 93005; 99285-25; J1200; J1756; J3420; J7050; P9016

== ENCOUNTER → 2018-12-06 | Outpatient (CLI) | payer BC, MEDICAID ==
[2018-02-02 11:00] VITALS: BP 127/70
[~2018-12-06] MED LIST changes: +ACYC400T PO; +ALBU2.5V8 IH; +ALBU2.5V8 INH; +ALPR1TAB2 PO; +ALPR1TAB6 PO; +AMOX500T PO; +BUSP15TA PO; +CARB200T4 PO; +CARV25TA2 PO; +CYAN10002 IM; +CYCL10TA2 PO; +DULO30CA2 PO; +EPIPEN0.3 MG/0.3 IJ; +ESOM40CA PO; +FLUT16SP NS; +FLUT9.9S NS; +GABA300C18 PO; +GUAI-108 PO; +HYDR-2761 PO; +HYDR-2765 PO; +INSU300I SQ; -IV RINGERS,LACTATED 1000ML 1,000 ML IV; +LEVO150T5 PO; +LEVO175T5 PO; +LEVO500T59 PO; +LIDO30CR TP; +LORA10TA68 PO; +METF10007 PO; +METO10TA PO; +METO10TA81 PO; +MIDO5TAB PO; +MONT10TA9 PO; +MOXI400T PO; +MULT-557 PO; +OMEP20TA8 PO; +ONDA4TAB12 PO; +ONDA8TAB9 PO; +OXYC1TAB15 PO; +OXYC1TAB7 PO; +PANT40GR PO; +POLY17PO29 PO; +PRAM0.25 PO; -PROPOFOL 20 ML IV; +SERT100T8 PO; +SUCR1TAB PO; +TRAZ-118 PO; +[UNRECOGNIZED DRUG - OTHER]; +[UNRECOGNIZED DRUG - OTHER]; +[UNRECOGNIZED DRUG - OTHER]; +[UNRECOGNIZED DRUG - REMARK]
--- NOTE | 2018-12-06 10:00 | CARD ---
MR#: [id number] Date of Study: 12/06/2018 Ordering Physician: ALYCE GARCIA, Referring Physician: ALYCE GARCIA Tech: Maddi Hernandez RDCS APPROVED REPORT EXAM: Two-dimensional and M-mode echocardiogram with Doppler and color Doppler. Other Information Quality : AverageHR: 50bpm Rhythm : Bradycardia INDICATION Congestive Heart Failure 2D DIMENSIONS RVDd2.4 (2.9-3.5cm)Left Atrium(2D)4.6 (1.6-4.0cm) IVSd0.9 (0.7-1.1cm)Aortic Root(2D)3.0 (2.0-3.7cm) LVDd6.4 (3.9-5.9cm)LVOT Diameter1.9 (1.8-2.4cm) PWd1.2 (0.7-1.1cm)LVDs5.2 (2.5-4.0cm) FS (%) 18.9 %SV79.6 ml LVEF(%)38.2 (>50%) M-Mode DIMENSIONS Left Atrium(MM)4.63 (2.5-4.0cm)Aortic Root3.51 (2.2-3.7cm) Aortic Valve AoV Peak Ryan.196.3cm/sAoV VTI48.0cm AO Peak GR.15.4mmHgLVOT Peak Ryan.79.7cm/s AO Mean GR.9mmHgAVA (VMAX)1.10cm2 SUSAN (VTI)1.20cm2 Mitral Valve MV E Mxpblpzq34.0cm/sMV DECEL IROQ516mc MV A Skzwpdlp144.5cm/sE/A Ratio1.0 MV A Twwsyffi578nc Pulmonary Valve PV Peak Soofuxya719.8cm/s Tricuspid Valve TR P. Jaxpbnzw936vq/sRAP YVDAFJOG4xoBn TR Peak Gr.29pbSjMMVC84xzJf Pulmonary Vein S1 Kzsyobyv22.4cm/sD2 Lrcsqesc79.9cm/s PVa jefjible76dtvu LEFT VENTRICLE The Left Ventricle is mildly dilated. There is normal left ventricular wall thickness. The left ventr icular systolic function is mildly impaired. The Ejection Fraction is 45%. There is global hypokinesi s of the left ventricle. Transmitral Doppler flow pattern is Grade II-pseudonormal filling dynamics. Muscle band noted in LV apex. RIGHT VENTRICLE The right ventricle is normal size. There is normal right ventricular wall thickness. The right ventr icular systolic function is normal. ICD wire noted noted in RV/RA. ATRIA The left atrium is mildly dilated. The right atrium size is normal. The interatrial septum is intact with no evidence for an atrial septal defect or patent foramen ovale as noted on 2-D or Doppler imagi ng. AORTIC VALVE The non coronary cusp is calcified. The aortic valve is trileaflet. Doppler and Color Flow revealed n o significant aortic regurgitation. There is no significant aortic valvular stenosis. MITRAL VALVE Mitral annular calcification is mild. There is no evidence of mitral valve prolapse. There is no mitr al valve stenosis. Doppler and Color-flow revealed trace mitral regurgitation. TRICUSPID VALVE The tricuspid valve is normal in structure and function. Doppler and Color Flow revealed trace tricus pid regurgitation. There is mild pulmonary hypertension. The PA pressure was estimated at 36 mmHg. Th ere is no tricuspid valve prolapse or vegetation. There is no tricuspid valve stenosis. PULMONIC VALVE The pulmonary valve is normal in structure and function. Doppler and Color Flow revealed no pulmonic valvular regurgitation. There is no pulmonic valvular stenosis. GREAT VESSELS The aortic root is normal in size. The ascending aorta is normal in size. The IVC is normal in size a nd collapses <50% with inspiration. PERICARDIAL EFFUSION There is no evidence of significant pericardial effusion. Critical Notification Critical Value: No <Conclusion> The left ventricular systolic function is mildly impaired. The Ejection Fraction is 45%. ICD wire noted noted in RV/RA. Trace mitral regurgitation. Trace tricuspid regurgitation. There is mild pulmonary hypertension. The PA pressure was estimated at 36 mmHg. There is no evidence of significant pericardial effusion. Signed by : Alyce Garcia, Electronically Approved : 12/06/2018 10:00:26
== END | disposition home or self-care (01) ==
LOC: ECHO 06:37
PROVIDERS: ATTEND Internal Medicine Cardiovascular Disease
DX: I11.0 Hypertensive heart disease with heart failure (principal); I50.22 Chronic systolic (congestive) heart failure; I25.10 Atherosclerotic heart disease of native coronary artery without angina pectoris; I27.20 Pulmonary hypertension, unspecified
CPT/HCPCS: 93306

== ENCOUNTER → 2019-12-07 | Outpatient (CLI) | payer MEDICAID, MEDICARE ==
[2018-02-02 11:00] VITALS: BP 127/70
[~2019-12-07] MED LIST changes: -MIDO5TAB PO; +MIDO5TAB4 PO; +MONT10TA49 PO; -MONT10TA9 PO; -MOXI400T PO; +MOXI400T13 PO
--- NOTE | 2019-12-07 10:41 | CARD ---
MR#: [id number] Date of Study: 12/07/2019 Ordering Physician: ALYCE DEL VALLE, Referring Physician: ALYEC DEL VALLE, Tech: Juliette Choudhary APPROVED REPORT EXAM: Two-dimensional and M-mode echocardiogram with Doppler and color Doppler. Other Information Quality : AverageHR: 60bpm INDICATION Congestive Heart Failure Surgery/Intervention ICD/Pacemaker: Date: 2019 RISK FACTORS Hypertension Hyperlipidemia 2D DIMENSIONS RVDd2.5 (2.9-3.5cm)Left Atrium(2D)4.0 (1.6-4.0cm) IVSd0.9 (0.7-1.1cm)Aortic Root(2D)3.3 (2.0-3.7cm) LVDd6.2 (3.9-5.9cm)LVOT Diameter2.0 (1.8-2.4cm) LVDs4.9 (2.5-4.0cm)FS (%) 21.7 % SV85.1 mlLVEF(%)43.1 (>50%) Aortic Valve AoV Peak Ryan.163.8cm/sAoV VTI35.2cm AO Peak GR.10.7mmHgLVOT Peak Ryan.73.1cm/s LVOT VTI 17.86cmAO Mean GR.6mmHg SUSAN (VMAX)1.11iz6SXI (VTI)1.66cm2 Mitral Valve MV E Icqfzwgh71.4cm/sMV DECEL POJM940di MV A Nulyywxe383.5cm/sMV E Mean Gr.2mmHg MV QBI13owG/A Ratio0.9 MVA (PHT)2.98cm2 TDI E/Lateral E'17.4E/Medial E'16.4 Pulmonary Valve PV Peak Nnxuvzvf58.6cm/sPV Peak Grad.4mmHg Tricuspid Valve TR P. Kgdfrqcz350ig/sRAP HMXZKHTT0mnEk TR Peak Gr.73uuDzRSYR84lpNq Pulmonary Vein S1 Zynstivt94.6cm/sD2 Vppcnith05.1cm/s PVa wcwgarhw229irxg LEFT VENTRICLE The Left Ventricle is mildly to moderately dilated. There is borderline to mild concentric left ventr icular hypertrophy. The left ventricular systolic function is mildly decreased. EF 40-45% There is mi ld global hypokinesis of the left ventricle with septal motion suggestive of conduction defect. Trans mitral Doppler flow pattern is Grade I-abnormal relaxation pattern. RIGHT VENTRICLE The right ventricle is normal size. The right ventricular systolic function is normal. There is a pac emaker lead in the right ventricle. ATRIA The left atrium size is normal. The right atrium size is normal. There is a pacemaker lead seen in th e right atrium. The interatrial septum is intact with no evidence for an atrial septal defect or tucker nt foramen ovale as noted on 2-D or Doppler imaging. AORTIC VALVE The aortic valve is calcified but opens well. Doppler and Color Flow revealed trace aortic regurgitat ion. Calculated aortic valve area is 1.66 cm2 with maximum pressure gradient of 12 mmHg and mean pres sure gradient of 6 mmHg. There is no significant aortic valvular stenosis. MITRAL VALVE The mitral valve is normal in structure and function. There is no evidence of mitral valve prolapse. There is no mitral valve stenosis. Doppler and Color-flow revealed trace mitral regurgitation. TRICUSPID VALVE The tricuspid valve is normal in structure and function. Doppler and Color Flow revealed trace tricus pid regurgitation with an estimated PAP of 28 mmHg. There is no tricuspid valve stenosis. PULMONIC VALVE The pulmonic valve is not well visualized. Doppler and Color Flow revealed no pulmonic valvular regur gitation. There is no pulmonic valvular stenosis. GREAT VESSELS The aortic root is normal in size. The IVC is dilated and collapses >50% with inspiration. PERICARDIAL EFFUSION There is no evidence of significant pericardial effusion. Critical Notification Critical Value: No <Conclusion> The left ventricular systolic function is mildly decreased. EF 40-45% There is mild global hypokinesis of the left ventricle with septal motion suggestive of conduction de fect. There is a pacemaker lead in the right ventricle. Doppler and Color Flow revealed trace tricuspid regurgitation with an estimated PAP of 28 mmHg. Signed by : Bob Carr, Electronically Approved : 12/07/2019 10:41:21
== END ==
LOC: ECHO 08:29
PROVIDERS: ATTEND Internal Medicine Cardiovascular Disease
DX: I50.22 Chronic systolic (congestive) heart failure (principal)
CPT/HCPCS: 93306

== ENCOUNTER → 2020-06-29 | Outpatient (CLI) | payer MEDICARE, MEDICAID ==
[2018-02-02 11:00] VITALS: BP 127/70
[~2020-06-29] MED LIST changes: +APIX5TAB PO; +ASPI-630 PO; +CALC0.5C8 PO; +CARV3.12 PO; +CRESTOR40 MG PO; +DICY10CA3 PO; +FLUT100D IH; +HYDR-3164 PO; +IMIP10TA2 PO; +LEVO100T5 PO; +LEVO5TAB29 PO; +LINZESS145 MCG PO; +LISI2.5T PO; +TIZA4TAB2 PO
== END | disposition home or self-care (01) ==
LOC: LAB 13:39
PROVIDERS: ATTEND Surgery
DX: Z01.812 Encounter for preprocedural laboratory examination (principal); Z20.828 Contact with and (suspected) exposure to other viral communicable diseases; K43.2 Incisional hernia without obstruction or gangrene; Z88.8 Allergy status to other drugs, medicaments and biological substances; Z88.2 Allergy status to sulfonamides; Z91.041 Radiographic dye allergy status
CPT/HCPCS: U0003-CS

== ENCOUNTER 2020-07-03 07:30 | Observation (INO) | payer MEDICARE, MEDICAID ==
[2020-07-03] VITALS (8 sets, daily range): BP systolic 118–137; BP diastolic 60–77
[~2020-07-03] VITALS: Ht 160 cm; Wt 111.0 kg
[~2020-07-03 07:30] MED LIST changes: +IV RINGERS,LACTATED 1000ML 1,000 ML IV SCH; +LIDOCAINE 1% PF 2 ML VIAL. ID PRN; +ONDANSETRON PF 4 MG/2 ML VIAL. IV PRN; +PROCHLORPERAZINE 10 MG/2 ML VIAL. IV PRN; +fentaNYL PF VIAL 100 MCG/2 ML VIAL IV PRN
[2020-07-03] MEDS ORDERED: LIDOCAINE 2% PF 5 ML VIAL. ONE (08:07)
[2020-07-03] MEDS ORDERED: PROPOFOL 10 MG/ML (20ML) VIAL. IV ONE (08:07)
[2020-07-03] MEDS ORDERED: fentaNYL PF VIAL 100 MCG/2 ML VIAL ONE ×2 (08:08→10:46)
[2020-07-03] MEDS ORDERED: ROCURONIUM 50 MG/5 ML VIAL. ONE (08:08)
[2020-07-03] MEDS ORDERED: BUPIVACAINE-EPI 0.5%-1:200000 MPF 30 ML VIAL. ONE (09:15)
--- NOTE | 2020-07-03 09:16 | PDOC ---
SURGICAL PROGRESS NOTE DATE: 07/03/20 TIME: 09:13 Subjective Pre-Op Note 50 yo F with recurrent incisional hernia, symptomatic. TO OR for repair. R/R/B/A d/w pt and pt's . Risks, including, but not limited to: bleeding, infection, damage to surrounding structures, risk of anesthesia, risk of recurrence (high, secondary to multiple repairs and obesity). They appear to understand, their questions are answered and they elect to proceed. Previous colonoscopy in February incomplete, but she d/w GI and favor addressing hernia prior to. Office note H&P reviewed and unchanged. Vital Signs Vital Signs Date Time Temp Pulse Resp B/P (MAP) Pulse Ox O2 Delivery O2 Flow Rate FiO2 07/03/20 08:13 97.9 69 20 157/76 94 Room Air 97.9 Justicifation of Admission Dx: Justifications for Admission: Justification of Admission Dx: N/A DIETER GARCIA MD Jul 03, 2020 09:16
[2020-07-03] MEDS: ceFAZolin SODIUM 3 GM in IV DEXTROSE 5% 100ML 100 ML IV PRN ×2 (09:37→13:04)
[2020-07-03] MEDS ORDERED: SEVOFLURANE 31 TO 60 MINUTES. IH ONE (09:39)
[2020-07-03] MEDS ORDERED: ONDANSETRON PF 4 MG/2 ML VIAL. ONE (09:39)
[2020-07-03] MEDS ORDERED: DEXAMETHASONE SOD PHOS 4 MG/ML VIAL ONE (09:39)
[2020-07-03] MEDS ORDERED: GLYCOPYRROLATE 1 MG/5 ML VIAL. ONE (10:04)
[2020-07-03] MEDS ORDERED: NEOSTIGMINE METHYLSULFATE 5 MG/5 ML SYRINGE. ONE (10:04)
[2020-07-03] MEDS ORDERED: IV NORMAL SALINE 1000ML BAG 1,000 ML IV SCH (10:39)
[2020-07-03] MEDS: IV RINGERS,LACTATED 1000ML 1,000 ML IV SCH (10:39)
[2020-07-03] MEDS ORDERED: 0.9 % SODIUM CHLORIDE 10 ML DISP.SYRIN. IV PRN (10:45)
[2020-07-03] MEDS ORDERED: NALOXONE 0.4 MG/ML VIAL. IV PRN (10:45)
[2020-07-03] MEDS ORDERED: ONDANSETRON PF 4 MG/2 ML VIAL. IVP PRN (10:45)
[2020-07-03] MEDS ORDERED: KETOROLAC 15 MG/ML VIAL. IV PRN (10:45)
--- NOTE | 2020-07-03 10:47 | PDOC4 ---
OPERATIVE NOTE Date: Date: Jul 03, 2020 Pre-Op Diagnosis: Incisional hernia Post-Op Diagnosis: same Procedure Performed: incisional hernia repair Surgeon: Kaz Garcia Anesthesia Type: GETA plus local Blood Loss: 50 Specimans Obtained: hernia sac Findings: 4 cm diameter incisional hernia, morbid obesity, viable viscera Complications: none Operative Note: After obtaining informed consent, patient was taken to OR, induced under GETA and prepped in the usual fashion. Previous incision was opened using cautery and carried down to fascia. Hernia sac identified, opened sharply and resected and sent to pathology. Relatively small defect with protruding viscera, but viable. Viscera reduced and cleared of adhesions for several centimeters circumstantially. Fascia repaired in transverse vest in pants fashion using 2 x 0 PDS looped. Subcutaneous tissues repaired with 0 vicryl in several layers. Skin repaired with 3 0 vicryl and 4 0 monocryl. Dressing placed. Patient tolerated procedure well and sent to PACU in stable condition. All counts correct. No immediate complications. DIETER GARCIA MD Jul 03, 2020 10:47
[2020-07-03] MEDS: fentaNYL PF VIAL 100 MCG/2 ML VIAL IV PRN ×2 (10:50→11:05)
[2020-07-03] MEDS ORDERED: MORPHINE SULFATE 2 MG/ML VIAL. ONE (11:51)
[2020-07-03] MEDS: MORPHINE SULFATE 2 MG/ML VIAL. IV PRN ×2 (11:54→12:06)
--- NOTE | 2020-07-03 14:02 | NUR ---
received from recovery; she is alert and oriented. she denies nausea. requesting water; given. she ambulated to the bathroom and voided. father arrives. o2 sat on room air is greater than 95%; left on room air. abdominal dressing is clean and dry; she has shadowing on the lower half of incision. she is rating her pain 4-5 and doesa not want pain medicine at this time.
[2020-07-03] MEDS: HYDROcodone/APAP 5/325MG 1 TAB TABLET PO PRN (16:53)
[2020-07-03] MEDS ORDERED: ENOXAPARIN 40 MG/0.4 ML SYRINGE. SQ SCH (21:00)
[2020-07-03] MEDS: DOCUSATE SODIUM 100 MG CAPSULE. PO SCH (21:06)
--- NOTE | 2020-07-03 21:11 | NUR ---
returned paged informed Dr about pt home meds and only want to take the following medication dicyclomine hcl 10mg qid prn,tizanidine hcl 4mg 1 tablet in am.2 tablets in pm,lisinopril 2.5 mg daily,cymbalta 1 po hs,imipraminehcl 10mg bid,xanax 1mg po tid prn,sulcrafe 1 gram po bid protonix 40mg daily,levothyroxine 100mcg in am calcitrol0.5 mcgcapsule resume meds and start apixaban and aspirin tommorow
--- NOTE | 2020-07-03 21:15 | NUR ---
pt also stated shes taking acyclovir 400mg bid
[2020-07-03] MEDS ORDERED: tiZANidine 4 MG TABLET. PO SCH ×2 (21:30→22:00)
[2020-07-03] MEDS ORDERED: DICYCLOMINE HCL 10 MG CAPSULE PO PRN (21:30)
[2020-07-03] MEDS ORDERED: DULoxetine HCL 30 MG CAPSULE.DR PO SCH (21:30)
[2020-07-03] MEDS ORDERED: ALPRAZolam 0.5 MG TABLET PO PRN (21:30)
[2020-07-03] MEDS: ACYCLOVIR 200 MG CAPSULE. PO SCH (22:04)
[2020-07-04 02:34] VITALS: BP 141/73
[2020-07-04] MEDS: IV RINGERS,LACTATED 1000ML 1,000 ML IV SCH (02:51)
[2020-07-04] MEDS: HYDROcodone/APAP 5/325MG 1 TAB TABLET PO PRN ×2 (02:53→08:11)
[2020-07-04] MEDS ORDERED: LEVOTHYROXINE 100 MCG TABLET PO SCH (06:00)
[2020-07-04 06:18] VITALS: BP 142/60
[2020-07-04] MEDS ORDERED: SUCRALFATE 1 GM TABLET. PO SCH (07:30)
[2020-07-04] MEDS ORDERED: PANTOPRAZOLE 40 MG TABLET.DR. PO SCH (07:30)
[2020-07-04] MEDS ORDERED: ASPIRIN ENTERIC COATED 81 MG TABLET.DR. PO SCH (08:00)
[2020-07-04] MEDS ORDERED: ANTI-COAG MONITOR BY PHARMACY. MC PRN (08:00)
[2020-07-04] MEDS: DOCUSATE SODIUM 100 MG CAPSULE. PO SCH (08:06)
[2020-07-04] MEDS: ACYCLOVIR 200 MG CAPSULE. PO SCH (08:11)
[2020-07-04] MEDS ORDERED: APIXABAN 5 MG TABLET. PO SCH (09:00)
[2020-07-04] MEDS ORDERED: tiZANidine 4 MG TABLET. PO SCH (09:00)
[2020-07-04] MEDS ORDERED: CALCITRIOL 0.25 MCG CAPSULE. PO SCH (09:00)
[2020-07-04] MEDS ORDERED: IMIPRAMINE HCL 10 MG PO SCH (09:00)
[2020-07-04] MEDS ORDERED: LISINOPRIL 5 MG TABLET. PO SCH (09:00)
--- NOTE | 2020-07-04 10:00 | NUR ---
Dressing changed and place abdominal binder. No c/o at this time.
--- NOTE | 2020-07-04 10:26 | PDOC1 ---
History and Physical Date of Service: DOS: DATE: 07/04/20 TIME: 10:19 Chief Complaint: Chief Complain: Medical management for incisional hernia History of Present Illness: HPI: Patient is a 50-year-old female with past medical history of diabetes mellitus, dyslipidemia, hypertension, atrial fibrillation, CHF with EF of 40 to 45%, radha-en-y gastric bypass who presents to the ED for an incisional hernia she is now status post incisional hernia repair with Dr. Jackman on 07/03/2020. Patient seen and examined bedside with no complaints at this time. Abdominal binder is in place and pain is well tolerated. Past Medical/Surgical History: PMH/PSH: Diabetes mellitus Dyslipidemia Hypertension Atrial fibrillation CHF History of Radha-en-Y gastric bypass Allergies: Allergies: Coded Allergies: Iodinated Contrast Media (Verified Allergy, Severe, Anaphylaxis, 07/03/20) exenatide (Verified Allergy, Severe, Hives, nausea/vomiting, 07/03/20) adhesive tape (Verified Allergy, Mild, Rash, 07/03/20) Sulfa (Sulfonamide Antibiotics) (Verified Adverse Reaction, Intermediate, Nausea and Vomiting, 07/03/20) codeine (Verified Adverse Reaction, Intermediate, Nausea and Vomiting, 07/03/20) pt states, "knocks her out cold." Uncoded Allergies: MANY SOAPS (Allergy, Unknown, 06/29/20) Family History: Family History: Diabetes and hypertension in the family Social History: Social History: Daily marijuana use. The denies tobacco smoke. Current Medications: Current Medications Current Medications Cefazolin Sodium 3 gm/Dextrose 100 ml @ 200 mls/hr 1X PREOP PRN IV PRIOR TO PROCEDURE Last administered on 07/03/20at 09:37; Start 07/03/20 at 06:00; Stop 07/03/20 at 15:00; Status DC Ondansetron HCl (Zofran) 4 mg PRN Q6HRS PRN IV NAUSEA/VOMITING Last administered on 07/03/20at 11:10; Start 07/03/20 at 07:15; Stop 07/03/20 at 21: 32; Status DC Fentanyl Citrate (Fentanyl 2ml Vial) 25 mcg PRN Q5MIN PRN IV MILD PAIN 1-3; Start 07/03/20 at 07:15; Stop 07/04/20 at 07:14; Status DC Fentanyl Citrate (Fentanyl 2ml Vial) 50 mcg PRN Q5MIN PRN IV MODERATE TO SEVERE PAIN Last administered on 07/03/20at 11:05; Start 07/03/20 at 07:15; Stop 07/04/20 at 07:14; Status DC Ringer's Solution 1,000 ml @ 30 mls/hr Q24H IV Last administered on 07/03/20at 08:14; Start 07/03/20 at 07:13; Stop 07/03/20 at 19:12; Status DC Lidocaine HCl (Xylocaine-Mpf 1% 2ml Vial) 2 ml PRN 1X PRN ID PRIOR TO IV START; Start 07/03/20 at 07:15; Stop 07/04/20 at 07:14; Status DC Prochlorperazine Edisylate (Compazine) 5 mg PACU PRN PRN IV NAUSEA, MRX1 Last administered on 07/03/20at 11:20; Start 07/03/20 at 07:15; Stop 07/04/20 at 07:14; Status DC Propofol (Diprivan) 200 mg STK-MED ONCE IV ; Start 07/03/20 at 08:07; Stop 07/03/20 at 08:07; Status DC Lidocaine HCl (Lidocaine Pf 2% Vial) 5 ml STK-MED ONCE .ROUTE ; Start 07/03/20 at 08:07; Stop 07/03/20 at 08:07; Status DC Fentanyl Citrate (Fentanyl 2ml Vial) 100 mcg STK-MED ONCE .ROUTE ; Start 07/03/20 at 08:08; Stop 07/03/20 at 08:08; Status DC Rocuronium [place] (Zemuron) 50 mg STK-MED ONCE .ROUTE ; Start 07/03/20 at 08:08; Stop 07/03/20 at 08:09; Status DC Bupivacaine HCl/ Epinephrine Bitart (Sensorcain-Epi 0.5%-1:151800 Mpf) 30 ml STK-MED ONCE .ROUTE Last administered on 07/03/20at 10:01; Start 07/03/20 at 09:15; Stop 07/03/20 at 09:15; Status DC Ondansetron HCl (Zofran) 4 mg STK-MED ONCE .ROUTE ; Start 07/03/20 at 09:39; Stop 07/03/20 at 09:40; Status DC Dexamethasone Sodium Phosphate (Decadron) 4 mg STK-MED ONCE .ROUTE ; Start 07/03/20 at 09:39; Stop 07/03/20 at 09:40; Status DC Sevoflurane (Ultane) 30 ml STK-MED ONCE IH ; Start 07/03/20 at 09:39; Stop 07/03/20 at 09:40; Status DC Glycopyrrolate (Robinul) 1 mg STK-MED ONCE .ROUTE ; Start 07/03/20 at 10:04; Stop 07/03/20 at 10:04; Status DC Neostigmine [place] (Neostigmine Methylsulfate) 5 mg STK-MED ONCE .ROUTE ; Start 07/03/20 at 10:04; Stop 07/03/20 at 10:04; Status DC Enoxaparin Sodium (Lovenox 40mg Syringe) 40 mg Q24H SQ Last administered on 07/03/20at 21:07; Start 07/03/20 at 21:00; Stop 07/04/20 at 07:50; Status DC Sodium Chloride (Normal Saline Flush) 3 ml QSHIFT PRN IV AFTER MEDS AND BLOOD DRAWS; Start 07/03/20 at 10:45 Ringer's Solution 1,000 ml @ 100 mls/hr Q10H IV Last administered on 07/04/20at 02:51; Start 07/03/20 at 10:39 Acetaminophen/ Hydrocodone Bitart (Lortab 5/325) 1 tab PRN Q4HRS PRN PO MILD PAIN 1-3 Last administered on 07/04/20at 08:11; Start 07/03/20 at 10:45 Ketorolac Tromethamine (Toradol 15mg Vial) 15 mg PRN Q6HRS PRN IV PAIN- INFLAMMATION Last administered on 07/03/20at 15:43; Start 07/03/20 at 10:45; Stop 07/08/20 at 10:44 Naloxone HCl (Narcan) 0.4 mg PRN Q2MIN PRN IV SEE INSTRUCTIONS; Start 07/03/20 at 10:45 Sodium Chloride 1,000 ml @ 25 mls/hr Q24H IV ; Start 07/03/20 at 10:39; Status UNV Morphine Sulfate (Morphine Sulfate) 1 mg PRN Q1HR PRN IV PAIN Last administered on 07/03/20at 12:06; Start 07/03/20 at 10:45 Docusate Sodium (Colace) 100 mg BID PO Last administered on 07/04/20at 08:06; Start 07/03/20 at 21:00 Ondansetron HCl (Zofran) 4 mg PRN Q6HRS PRN IVP NAUESA, 1ST CHOICE; Start 07/03/20 at 10:45 Fentanyl Citrate (Fentanyl 2ml Vial) 100 mcg STK-MED ONCE .ROUTE ; Start at 10:46; Stop 07/03/20 at 10:46; Status DC Morphine Sulfate (Morphine Sulfate) 2 mg STK-MED ONCE .ROUTE ; Start 07/03/20 at 11:51; Stop 07/03/20 at 11:52; Status DC Alprazolam (Xanax) 1 mg TID PRN PRN PO ANXIETY / AGITATION; Start 07/03/20 at 21:30 Dicyclomine HCl (Bentyl) 10 mg PRN QID PRN PO MUSCLE SPASMS; Start 07/03/20 at 21:30 Duloxetine HCl (Cymbalta) 30 mg HS PO Last administered on 07/03/20at 22:04; Start 07/03/20 at 21:30 Levothyroxine Sodium (Synthroid) 100 mcg DAILY06 PO Last administered on 07/04/20at 05:58; Start 07/04/20 at 06:00 Sucralfate (Carafate) 1 gm BIDAC PO ; Start 07/04/20 at 07:30 Tizanidine HCl (Zanaflex) 8 mg BID PO ; Start 07/03/20 at 21:30; Status Cancel Acyclovir (Zovirax) 400 mg BID PO Last administered on 07/04/20at 08:11; Start 07/03/20 at 21:30 Calcitriol (Rocaltrol) 0.5 mcg DAILY PO Last administered on 07/04/20at 08:12; Start 07/04/20 at 09:00 Non-Formulary Medication (Imipramine Hcl ) 10 mg BID PO ; Start 07/04/20 at 09:00; Status UNV Lisinopril (Prinivil) 2.5 mg DAILY PO Last administered on 07/04/20at 08:10; Start 07/04/20 at 09:00 Pantoprazole Sodium (Protonix) 40 mg DAILYAC PO ; Start 07/04/20 at 07:30 Apixaban (Eliquis) 5 mg BID PO Last administered on 07/04/20at 08:06; Start 07/04/20 at 09:00 Aspirin (Ecotrin) 81 mg DAILYWBKFT PO Last administered on 07/04/20at 08:11; Start 07/04/20 at 08:00 Tizanidine HCl (Zanaflex) 8 mg HS PO Last administered on 07/03/20at 22:03; Start 07/03/20 at 22:00 Tizanidine HCl (Zanaflex) 4 mg DAILY PO Last administered on 07/04/20at 08:07; Start 07/04/20 at 09:00 Info (Anti-Coagulation Monitoring By Pharmacy) 1 each PRN DAILY PRN MC SEE COMMENTS; Start 07/04/20 at 08:00 Active Scripts Active Flonase Allergy Relief (Fluticasone Propionate) 9.9 Ml Lewis.susp 2 Sprays NS DAILY 7 Days Reported Imipramine Hcl 10 Mg Tablet 10 Mg PO BID Singulair Tablet (Montelukast Sodium) 10 Mg Tablet 10 Mg PO HS Flovent 100MCG Diskus (Fluticasone Propionate) 100 Mcg Disk.w.dev 1 Puff IH DAILY Dicyclomine Hcl 10 Mg Capsule 10 Mg PO QIDPRN PRN Sucralfate 1 Gm Tablet 1 Gm PO BID Coreg (Carvedilol) 3.125 Mg Tablet 3.125 Mg PO BIDWMEALS [place] 5-325 Tablet (Acetaminophen/Hydrocodone Bitart) 1 Each Tablet 1 Tab PO PRN Q6HRS PRN Linzess (Linaclotide) 145 Mcg Capsule 72 Mcg PO DAILY07 Ondansetron Odt (Ondansetron) 4 Mg Tab.rapdis 4 Mg PO Q8-12HRS PRN Calcitriol 0.5 Mcg Capsule 1 Cap PO DAILY Tizanidine Hcl 4 Mg Tablet 2 Tab PO BID Xyzal (Levocetirizine Dihydrochloride) 5 Mg Tablet 1 Tab PO DAILY 30 Days Lisinopril 2.5 Mg Tablet 2.5 Mg PO DAILY Crestor (Rosuvastatin Calcium) 40 Mg Tablet 20 Mg PO HS Eliquis (Apixaban) 5 Mg Tablet 5 Mg PO BID Aspirin 81 Mg Tab.chew 1 Tab PO DAILY Levothyroxine Sodium 100 Mcg Tablet 1 Tab PO DAILY Proair Hfa Inhaler (Albuterol Sulfate) 8.5 Gm Hfa.aer.ad 1 Puff INH PRN Q6HRS PRN Cymbalta (Duloxetine Hcl) 30 Mg Capsule.dr 1 Cap PO HS Protonix Packet (Pantoprazole Sodium) 40 Mg Granpkt.dr 40 Mg PO DAILY Claritin (Loratadine) 10 Mg Tablet 1 Tab PO DAILY Xanax (Alprazolam) 1 Mg Tablet 1 Mg PO TID PRN PRN Acyclovir 400 Mg Tablet 400 Mg PO BID PRN ROS: Review of Systems Review of System REVIEW OF SYSTEMS: GENERAL: Denies weakness SKIN: No bruising, hair changes or rashes. EYES: No blurred, double or loss of vision. NOSE AND THROAT: No history of nosebleeds, hoarseness or sore throat. HEART: No history of palpitations, chest pain or shortness of breath on exertion. LUNGS: Denies cough, hemoptysis, wheezing or shortness of breath. GASTROINTESTINAL: Denies changes in appetite, nausea, vomiting, diarrhea or constipation. GENITOURINARY: No history of frequency, urgency, hesitancy or nocturia. NEUROLOGIC: Denies history of numbness, tingling, or tremor. PSYCHIATRIC: No history of panic, anxiety or depression. ENDOCRINE: No history of heat or cold intolerance, polyuria or polydipsia. EXTREMITIES: Denies joint pain, pain on walking or stiffness. Physical Exam: Vital Signs: Vital Signs Date Time Temp Pulse Resp B/P (MAP) Pulse Ox O2 Delivery O2 Flow Rate FiO2 07/04/20 08:11 Room Air 07/04/20 08:10 72 142/76 07/04/20 06:18 98.0 18 96 98.0 07/03/20 13:10 2.0 Physcial Exam: GEN: No apparent distress. Alert and oriented HEENT: Normal cephalic, atraumatic, external auditory canals are patent EYES: Extraocular muscles are intact, pupil are equally round and reactive to light and accommodation MUSCULOSKELETAL: Well developed , well nourished, good range of motion ENDOCRINE: No thyromegaly was palpated LYMPHATICS: No cervical chain or axillary nodes were noted HEMATOPOIETIC: No bruising NECK: Supple, no JVD, no thyromegaly was noted LUNGS: Clear to auscultation in all lung pelayo without rhonchi or wheezing HEART: RRR, S!, S2 present. Peripheral pulses intact, no obvious murmurs noted ABDOMEN: Soft, nontender. Positive bowel sounds, no organomegaly, normal bowel sounds EXTREMITIES: Without clubbing, cyanosis, or edema. Pedal pulses intact. Negative Homans sign NEUROLOGIC: Normal speech and tone. A&O x 3, moves all extremities, no obvious focal deficits PSYCHIATRIC: Normal affect, normal mood. Stable SKIN: No ulcerations or rashes, good skin turgor, no jaundice VASCULAR: Good capillary refill, neurovascular bundle appears to be intact Assessment/Plan Assessment/Plan Ventral incisional hernia repair on 07/03/2020 Diabetes mellitus Hypertension CHF A. fib IV and p.o. pain control Diet per surgery R ISS and Accu-Cheks 3 times daily before meals and nightly Restart home medications Eliquis for DVT prophylaxis Protonix GI prophylaxis ADA diet Full code Discussed with RN and SW Disposition PT OT Surrogate decision maker is Tea Og Justifications for Admission Other Justification MELINDA CRISTINA MD Jul 04, 2020 10:26
[2020-07-04] MEDS ORDERED: DEXTROSE 50% 25 GM / 50ML DISP.SYRIN. IV PRN ×2 (10:30)
--- NOTE | 2020-07-04 11:06 | PDOC ---
SURGICAL PROGRESS NOTE DATE: 07/04/20 TIME: 11:05 Subjective doing fairly well tolerating diet Vital Signs Vital Signs Date Time Temp Pulse Resp B/P (MAP) Pulse Ox O2 Delivery O2 Flow Rate FiO2 07/04/20 08:11 Room Air 07/04/20 08:10 72 142/76 07/04/20 06:18 98.0 18 96 98.0 07/03/20 13:10 2.0 I&O Intake and Output 07/04/20 07:00 Intake Total 2030 ml Output Total 1800 ml Balance 230 ml Intake Oral 830 ml IV Total 1200 ml Output Urine Total 1750 ml Estimated Blood Loss 50 ml # Voids 1 General: Alert, Oriented X3, Cooperative Abdomen: Soft, Other (incision c/d/i, no erythema ) Assessment/Plan s/p IHR possible home later today Justicifation of Admission Dx: Justifications for Admission: Justification of Admission Dx: N/A IGOR ADAMS APRN Jul 04, 2020 11:06
[2020-07-04] MEDS ORDERED: HYDR-2761 PO (11:07)
--- NOTE | 2020-07-04 11:09 | DISCH ---
DISCHARGE INSTRUCTIONS Condition on Discharge Condition on Discharge: Stable Activity After Discharge Activity Instructions for Disc: No restrictions, Activity as tolerated Bathing Instructions: No Tub Bath until see Lifting Instructions after Dis: No heavy lifting, No pulling or pushing Exercise Instruction after Dis: Exercise per therapy, Progress as tolerated Driving Instructions after Dis: Do not drive Weight Bearing Status after Di: As tolerated Diet after Discharge Diet after Discharge: Regular, Diabetic No Calorie Level Diet Texture: Regular Swallowing Supervision: None needed Wound Incision Care Wound/Incision Care: May get incision wet Checks after Discharge Checks after discharge: Weigh Yourself Daily Contacting the after DC Call your doctor for: Concerns you may have Follow-Up Follow up with: Dr Brewster 1-2 weeks, call to schedule [phone] Treatment/Equipment after DC Adaptive Equipment Issued: None IGOR ADAMS APRN Jul 04, 2020 11:09
[2020-07-04 11:14] VITALS: BP 109/59
[2020-07-04] MEDS ORDERED: INSULIN LISPRO 300 UNITS/3 ML VIAL. SQ SCH (12:00)
--- NOTE | 2020-07-04 12:39 | NUR ---
Discharge instructions given. Answered questions and concerns. Verbalized understanding. Pt will follow up with Dr. Brewster in 2 weeks. Escorted out by w/c. Father drove pt home.
--- NOTE | 2020-07-04 15:08 | PATHOLOGY ---
[facility] Accession Number: [id number] . 01 Material submitted: . hernia - HERNIA SAC . 01 Clinical history: . INCISIONAL HERNIA . 02 Diagnosis: Segment of fibromembranous and fibroadipose tissue, incisional hernia repair: - Hernia sac. (JPM:[facility] 07/04/2020) [facility] 07/04/2020 1339 Local . 02 Electronically signed: . Shane Coreria MD, Pathologist NPI- [id number] . 01 Gross description: . The specimen is received in formalin, labeled "Debra Knight, hernia sac". Received is a segment of fibroadipose tissue measuring 5.0 x 4.1 x 1.2 cm in greatest dimensions. No distinct nodules or lesions are noted grossly. The specimen is submitted representatively in cassette A1. ([facility]; 07/03/2020) [facility] 07/03/2020 1708 Local . 02 Pathologist provided ICD-10: K43.2 . 02 CPT . 947854 Specimen Comment: A courtesy copy of this report has been sent to [phone] Specimen Comment: [id number] Specimen Comment: Report sent to / DR MOLINA Performed at: 01 [facility] [address], [place], [place] [id number] MD Mina Cason MD Phone: [phone] Performed at: 02 [facility] [address] [place], [place] [id number] MD Shane Correia MD Phone: [phone]
== END 2020-07-04 12:45 | disposition home or self-care (01) ==
LOC: SURG 07:30 → 4 SOUTHEST 11:35
PROVIDERS: ADMIT Surgery; ATTEND Surgery
DX: K43.9 Ventral hernia without obstruction or gangrene (principal); E11.9 Type 2 diabetes mellitus without complications; E66.01 Morbid (severe) obesity due to excess calories; E78.5 Hyperlipidemia, unspecified; I48.91 Unspecified atrial fibrillation; F12.90 Cannabis use, unspecified, uncomplicated; I11.0 Hypertensive heart disease with heart failure; I50.9 Heart failure, unspecified
CPT/HCPCS: 49565; 82962; 88302; 96361; 96372; 96374; A7015; G0378; G0379; J0780; J1100; J1650; J1815; J1885; J2270; J2405; J2704; J2710; J3010; J3490; J7120

== ENCOUNTER → 2020-08-08 | Outpatient (CLI) | payer MEDICARE, MEDICAID ==
[~2020-08-08] MED LIST changes: -IV RINGERS,LACTATED 1000ML 1,000 ML IV SCH; -LIDOCAINE 1% PF 2 ML VIAL. ID PRN; -ONDANSETRON PF 4 MG/2 ML VIAL. IV PRN; -PROCHLORPERAZINE 10 MG/2 ML VIAL. IV PRN; -fentaNYL PF VIAL 100 MCG/2 ML VIAL IV PRN
--- NOTE | 2020-08-08 14:15 | RAD ---
EXAM: CT Abdomen and Pelvis without IV contrast INDICATION: Periumbilical abdominal pain TECHNIQUE: Multi-detector row CT images were acquired from the lung bases through the abdomen and pelvis without the use of IV contrast. Sagittal and coronal images were acquired from the transaxial data. All CT scans performed at this facility utilize dose optimization techniques as appropriate to the exam, including the following: Automated exposure control and adjustment of the mA and/or KV according to patient size (this includes techniques or standardized protocols for targeted exams where dose is indication/reason for exam). ORAL CONTRAST: None COMPARISON: Abdomen pelvis CT without IV contrast of 07/17/2016. FINDINGS: The absence of IV contrast limits evaluation of soft tissue pathology. LOWER CHEST: Cardiac pacemaker wires are redemonstrated. LIVER: Unremarkable BILIARY SYSTEM: Gallbladder is surgically absent. Bile ducts are not dilated. PANCREAS: Unremarkable SPLEEN: Unremarkable ADRENALS: Unremarkable KIDNEYS & URETERS: Unremarkable BLADDER: Unremarkable REPRODUCTIVE ORGANS: Hysterectomy with retroperitoneal diane dissection to the level of the aortic bifurcation. GASTROINTESTINAL: The stomach shows postoperative changes from previous Radha-en-Y gastric bypass. The small bowel and colon are unremarkable. The appendix is normal. MESENTERY/PERITONEUM/RETROPERITONEUM: Unremarkable VASCULAR: Unremarkable LYMPH NODES: No adenopathy OSSEOUS & SOFT TISSUES: Bones are unremarkable. There has been interval development of a mixed density mass above the umbilicus with surrounding soft tissue stranding, measuring 8.4 cm transverse by 6.2 cm anteroposterior and 8.8 cm craniocaudal. There appears to been an interval increase in abdominal girth as well. IMPRESSION: Mixed density soft tissue mass above the umbilicus developing since 2016 is suspicious for a postoperative fluid collection or less likely a mixed cystic and solid neoplastic mass along the ventral midline abdominal incision. Consider correlation with ultrasound and recommended surgical consultation. Electronically signed by: Raman Maddox MD (08/08/2020 2:12 PM) [id number]
== END ==
LOC: CT 09:31
PROVIDERS: ATTEND Surgery
DX: R19.00 Intra-abdominal and pelvic swelling, mass and lump, unspecified site (principal); Z90.49 Acquired absence of other specified parts of digestive tract; Z95.0 Presence of cardiac pacemaker; Z90.711 Acquired absence of uterus with remaining cervical stump
CPT/HCPCS: 74176

== ENCOUNTER → 2021-02-21 | Outpatient (CLI) | payer MEDICARE, MEDICAID ==
[~2021-02-21] MED LIST changes: +ACYC-12 PO; -ACYC400T PO; -FLUT100D IH; +FLUT100D2 IH; -LIDO30CR TP; +LIDO30CR2 TP; +SERT-268 PO; -SERT100T8 PO
--- NOTE | 2021-02-22 15:00 | CARD ---
MR#: [id number] Date of Study: 02/21/2021 Ordering Physician: ALYCE DEL VALLE, Referring Physician: ALYCE DEL VALLE Tech: Monique Talamantes [facility] APPROV[facility] REPORT EXAM: Two-dimensional and M-mode echocardiogram with Doppler and color Doppler. Other Information Quality : AverageHR: 60bpm Rhythm : Pacemaker INDICATION Congenital Heart Disease Surgery/Intervention ICD/Pacemaker: RISK FACTORS Hypertension Obesity 2D DIMENSIONS RVDd2.5 (2.9-3.5cm)Left Atrium(2D)3.6 (1.6-4.0cm) IVSd1.0 (0.7-1.1cm)Aortic Root(2D)3.2 (2.0-3.7cm) LVDd5.9 (3.9-5.9cm)LVOT Diameter2.3 (1.8-2.4cm) PWd1.0 (0.7-1.1cm)LVDs4.8 (2.5-4.0cm) FS (%) 18.4 %SV64.2 ml LVEF(%)37.5 (>50%) Aortic Valve AoV Peak Ryan.160.4cm/sAoV VTI34.4cm AO Peak GR.10.3mmHgLVOT Peak Ryan.80.2cm/s AO Mean GR.6mmHgAVA (VMAX)2.02cm2 Mitral Valve MV E Lmerseao22.2cm/sMV DECEL [id number] MV A Jrhzwjdr07.6cm/sE/A Ratio0.9 Tricuspid Valve TR P. Vlvrtcxz291el/sTR Peak Gr.18mmHg Pulmonary Vein S1 Isybsjmn95.4cm/sD2 Lrmxvwcd92.7cm/s PVa xzlgtprq420ysjt LEFT VENTRICLE The Left Ventricle is mildly dilated. There is normal left ventricular wall thickness. The systolic f unction is moderately. Estimated ejection fraction 35-40%. Septal motion is suggestive of conduction defect. There is moderate global hypokinesis of the left ventricle. Tissue Doppler imaging reveals mo derate left ventricular diastolic dysfunction. RIGHT VENTRICLE The right ventricle is normal size. There is normal right ventricular wall thickness. The right ventr icular systolic function is normal. ATRIA The left atrium size is normal. The right atrium size is normal. The interatrial septum is intact wit h no evidence for an atrial septal defect or patent foramen ovale as noted on 2-D or Doppler imaging. AORTIC VALVE The aortic valve is normal in structure and function. Doppler and Color Flow revealed no significant aortic regurgitation. There is no significant aortic valvular stenosis. MITRAL VALVE The mitral valve is normal in structure and function. There is no evidence of mitral valve prolapse. There is no mitral valve stenosis. Doppler and Color Flow revealed no mitral valve regurgitation note d. TRICUSPID VALVE The tricuspid valve is normal in structure and function. Doppler and Color Flow revealed trace tricus pid regurgitation. Estimated PAP 21. There is no tricuspid valve stenosis. PULMONIC VALVE Doppler and Color Flow revealed no pulmonic valvular regurgitation. There is no pulmonic valvular eric nosis. GREAT VESSELS The aortic root is normal in size. The ascending aorta is normal in size. The IVC is normal in size a nd collapses >50% with inspiration. PERICARDIAL EFFUSION There is no evidence of significant pericardial effusion. Critical Notification Critical Value: No <Conclusion> The systolic function is moderately. Estimated ejection fraction 35-40%. Septal motion is suggestive of conduction defect. There is moderate global hypokinesis of the left ve ntricle. Signed by : Bob Carr, Electronically Approved : 02/22/2021 14:59:53
== END ==
LOC: ECHO 13:17
PROVIDERS: ATTEND Internal Medicine Cardiovascular Disease
DX: I50.22 Chronic systolic (congestive) heart failure (principal)
CPT/HCPCS: 93306

== ENCOUNTER → 2021-03-27 | Outpatient (CLI) | payer MEDICARE, MEDICAID ==
[~2021-03-27] MED LIST changes: +EMPA10TA PO
--- NOTE | 2021-03-27 09:30 | RAD ---
Examination: Ultrasound limited abdomen INDICATION: Follow-up abdominal wall mass. COMPARISON: CT dated 08/08/2020. TECHNIQUE: Limited real-time sonographic evaluation of the anterior abdominal wall soft tissue, suppl emented by color Doppler. FINDINGS:/ IMPRESSION: Redemonstrated complex avascular mass with solid and cystic components seen in the subcutaneous tissu e of the anterior abdominal wall abutting abdominal wall musculatures measures 6.7 x 6.3 x 4.3 cm. Th is is mass slightly decreasing in size since prior exam, previously measures 8.6 x 8.5 x 6.5 cm. Find ings suggesting of evolving hematoma versus complex seroma. Electronically signed by: Loree Medina MD (03/27/2021 9:28 AM) [id number]
== END ==
LOC: US 07:12
PROVIDERS: ATTEND Surgery
DX: R19.00 Intra-abdominal and pelvic swelling, mass and lump, unspecified site (principal)
CPT/HCPCS: 76705

== ENCOUNTER 2021-04-02 07:31 | Day surgery (SDC) | payer MEDICARE, MEDICAID ==
[~2021-04-02] VITALS: Ht 162.6 cm; Wt 104.5 kg
[~2021-04-02 07:31] MED LIST changes: +HYDROmorphone 2 MG/ML VIAL IVP PRN; +IV RINGERS,LACTATED 1000ML 1,000 ML IV SCH; +MORPHINE SULFATE 2 MG/ML VIAL. IVP PRN; +PROCHLORPERAZINE 10 MG/2 ML VIAL. IVP PRN; +fentaNYL PF VIAL 100 MCG/2 ML VIAL IVP PRN
[2021-04-02 08:08] VITALS: BP 146/75
[2021-04-02] MEDS: INSULIN LISPRO 100 UNIT/ML 3ML VIAL for OP,RR ONLY. SQ PRN ×2 (08:25→11:14)
[2021-04-02] MEDS ORDERED: DEXAMETHASONE SOD PHOS 4 MG/ML VIAL ONE (08:44)
[2021-04-02] MEDS ORDERED: PROPOFOL 10 MG/ML (20ML) VIAL. IV ONE (08:44)
[2021-04-02] MEDS ORDERED: LIDOCAINE 2% PF 5 ML VIAL. ONE ×2 (08:44→08:45)
[2021-04-02] MEDS ORDERED: ONDANSETRON PF 4 MG/2 ML VIAL. ONE (08:45)
[2021-04-02] MEDS ORDERED: ROCURONIUM 50 MG/5 ML VIAL. ONE (08:45)
[2021-04-02] MEDS ORDERED: BUPIVACAINE-EPI 0.5%-1:200000 MPF 30 ML VIAL. ONE ×2 (09:16→09:28)
--- NOTE | 2021-04-02 09:28 | PDOC ---
SURGICAL PROGRESS NOTE DATE: 04/02/21 TIME: 09:25 Subjective 51 yo F with abdominal wall mass, 6.7 cm by US, c/w evolving seroma. Symptomatic to pt. TO OR for excisional biopsy. Site marked with pt in preop superior aspect of midline scar. R/R/B/A d/w pt and pt's SO. Risks, including, but not limited to: bleeding, infection, damage to surrounding structures, risk of anesthesia, risk of recurrence. They appear to understand, their questions are answered and they elect to proceed. Office note H&P reviewed and unchanged. Vital Signs Vital Signs Date Time Temp Pulse Resp B/P (MAP) Pulse Ox O2 Delivery O2 Flow Rate FiO2 04/02/21 08:08 97.9 60 20 99 97.9 04/02/21 08:05 146/75 Room Air Labs Laboratory Tests Test 04/02/21 08:08 Glucose (Fingerstick) 138 mg/dL (70-99) Laboratory Tests Test 04/02/21 08:08 Glucose (Fingerstick) 138 mg/dL (70-99) Justicifation of Admission Dx: Justifications for Admission: Justification of Admission Dx: N/A DEITER GARCIA MD Apr 02, 2021 09:27
[2021-04-02] MEDS ORDERED: fentaNYL PF VIAL 100 MCG/2 ML VIAL ONE (09:50)
[2021-04-02] MEDS ORDERED: BUPIVACAINE-EPI 0.5%-1:200000 MPF 30 ML VIAL. INJ ONE (10:40)
[2021-04-02] MEDS ORDERED: NEOSTIGMINE METHYLSULFATE 5 MG/5 ML SYRINGE. ONE (10:48)
--- NOTE | 2021-04-02 10:53 | PDOC4 ---
OPERATIVE NOTE Date: Date: Apr 02, 2021 Pre-Op Diagnosis: Abdominal wall seroma Post-Op Diagnosis: same Procedure Performed: Excisional biopsy of abdominal wall seroma Surgeon: Kaz Garcia Anesthesia Type: GETA plus local Blood Loss: 50 Specimans Obtained: abdominal wall seroma Findings: 5 cm spherical soft mass, arising from fascia in epigastrium Complications: none Operative Note: After obtaining informed consent, patient was taken to OR, induced under GETA and prepped in the usual fashion. Previous incision opened with cautery. Mass encountered and sharply dissected out with cautery. It appeared to arise from fascia, but with amputation of this off, there did not appear to be any fascial defect. No spillage of specimen. Specimen sent to pathology for evaluation. Hemostasis obtained with cautery. Margarita placed in wound. Wound closed with several layers of 0 vicryl and 3 0 vicryl. Skin repaired with 4 0 monocryl. Dressing placed. DIETER GARCIA MD Apr 02, 2021 10:53
[2021-04-02] MEDS ORDERED: GLYCOPYRROLATE 1 MG/5 ML VIAL. ONE (11:06)
[2021-04-02] MEDS ORDERED: SEVOFLURANE 61 TO 120 MINUTES. IH ONE (11:07)
[2021-04-02] MEDS ORDERED: INSULIN LISPRO 100 UNIT/ML 3ML VIAL for OP,RR ONLY. SQ ONE ×2 (11:15)
[2021-04-02] MEDS ORDERED: DOCU-109 PO (11:32)
[2021-04-02 11:45] VITALS: BP 133/68
[2021-04-02] MEDS ORDERED: HYDROcodone/APAP 5/325MG 1 TAB TABLET PO ONE (11:45)
--- NOTE | 2021-04-04 16:10 | PATHOLOGY ---
[facility] Accession Number: [id number] . 01 Material submitted: . abdomen - ABDOMINAL WALL MASS. Modifiers: wall . 01 Clinical history: . ABDOMINAL WALL MASS EXCISION OF ABDOMINAL WALL MASS . 02 Diagnosis: Fibroadipose tissue, abdominal wall mass excision: - Organizing hematoma. (JPM:pit; 04/04/2021) P 04/04/2021 1410 Local . 02 Electronically signed: . Shane Correia MD, Pathologist NPI- [id number] . 01 Gross description: . Received in formalin labeled "Scraggs, Debra and abdominal wall mass". Received is a palpable pink-guido soft tissue mass measuring 7.0 x 6.0 x 5.5 cm and weighing 101 g. The specimen is inked black. Sectioning reveals a partially cystic thick-walled mass filled with hemorrhagic fibrinous material and red fluid. The wall thickness ranges from 0.2-0.3 cm. The specimen is representatively submitted in cassettes A1 thru A5. A1 thru A3 - section of the wall and internal contents A4 and A5 - additional representation of the internal contents (J; 04/02/2021) BLJ/BLJ 04/04/2021 1409 Local . 02 Pathologist provided ICD-10: R19.00 . 02 CPT . 645530 Specimen Comment: A courtesy copy of this report has been sent to [phone], [phone] Specimen Comment: [id number] Specimen Comment: Report sent to / DR MOLINA Specimen Comment: A duplicate report has been generated due to demographic updates. Performed at: [address], [place], [place] [id number] MD Wiley Gardner MD Phone: [phone] Performed at: 02 [facility] [address] [place], [place] [id number] MD Shane Correia MD Phone: [phone]
== END 2021-04-02 12:15 | disposition home or self-care (01) ==
LOC: SURG 07:31
PROVIDERS: ATTEND Surgery
DX: R19.00 Intra-abdominal and pelvic swelling, mass and lump, unspecified site (principal); I11.0 Hypertensive heart disease with heart failure; I50.9 Heart failure, unspecified; E78.00 Pure hypercholesterolemia, unspecified; I48.91 Unspecified atrial fibrillation; G47.30 Sleep apnea, unspecified; J45.909 Unspecified asthma, uncomplicated; E66.9 Obesity, unspecified; E11.9 Type 2 diabetes mellitus without complications; E03.9 Hypothyroidism, unspecified; M19.90 Unspecified osteoarthritis, unspecified site; F41.9 Anxiety disorder, unspecified; F32.9 Major depressive disorder, single episode, unspecified; K21.9 Gastro-esophageal reflux disease without esophagitis; Z90.710 Acquired absence of both cervix and uterus; Z98.890 Other specified postprocedural states; Z79.82 Long term (current) use of aspirin; Z79.899 Other long term (current) drug therapy; Z91.041 Radiographic dye allergy status; Z88.5 Allergy status to narcotic agent; Z88.8 Allergy status to other drugs, medicaments and biological substances; Z88.2 Allergy status to sulfonamides; Z82.49 Family history of ischemic heart disease and other diseases of the circulatory system; Z83.3 Family history of diabetes mellitus
CPT/HCPCS: 22903; 82962; A4930; A6402; J1815; 88305; A4223; J1100; J2405; J2704; J2710; J3010; J3490

== ENCOUNTER → 2022-03-06 | Outpatient (CLI) | payer MEDICAID, MEDICARE ==
[~2022-03-06] MED LIST changes: +CYCL10TA19 PO; -CYCL10TA2 PO; +DOCU-109 PO; -EMPA10TA PO; +EMPA10TA3 PO; -HYDROmorphone 2 MG/ML VIAL IVP PRN; -IV RINGERS,LACTATED 1000ML 1,000 ML IV SCH; -LISI2.5T PO; +LISI2.5T12 PO; -MORPHINE SULFATE 2 MG/ML VIAL. IVP PRN; -OMEP20TA8 PO; +OMEP20TA91 PO; -PROCHLORPERAZINE 10 MG/2 ML VIAL. IVP PRN; +TIZA-75 PO; -TIZA4TAB2 PO; -fentaNYL PF VIAL 100 MCG/2 ML VIAL IVP PRN
--- NOTE | 2022-03-06 17:19 | CARD ---
MR#: [id number] Date of Study: 03/06/2022 Ordering Physician: ALYCE DEL VALLE, Referring Physician: Jono EWING: Maday Graves [facility] APPROVED REPORT EXAM: Two-dimensional and M-mode echocardiogram with Doppler and color Doppler. Other Information Quality : Good Rhythm : NSR INDICATION Arrhythmia Cardiomyopathy Congestive Heart Failure Surgery/Intervention ICD/Pacemaker: RISK FACTORS Obesity 2D DIMENSIONS Left Atrium(2D)2.9 (1.6-4.0cm)IVSd1.1 (0.7-1.1cm) Aortic Root(2D)3.0 (2.0-3.7cm)LVDd5.3 (3.9-5.9cm) LVOT Diameter2.2 (1.8-2.4cm)PWd1.1 (0.7-1.1cm) LVDs4.4 (2.5-4.0cm)FS (%) 15.9 % SV44.4 ml Aortic Valve AoV Peak Ryan.161.2cm/sAoV VTI40.1cm AO Peak GR.10.4mmHgLVOT Peak Ryan.58.2cm/s AO Mean GR.6mmHgAVA (VMAX)1.43cm2 Mitral Valve MV E Vxzyumnn75.5cm/sMV DECEL [id number] MV A Tdejvlur51.0cm/sE/A Ratio1.0 Pulmonary Valve PV Peak Wgtbjagq847.0cm/s Tricuspid Valve TR P. Uqigujwf819hh/sRAP LMLPZETN8mhDn TR Peak Gr.75idQyGEDW51dvHz Pulmonary Vein S1 Chvegsvy07.8cm/sD2 Akyndfjk39.2cm/s PVa [id number] LEFT VENTRICLE The Left Ventricle is borderline dilated. There is normal left ventricular wall thickness. LV systoli c function is decreased. LV ejection fraction is 35 to 40%. There is global hypokinesis of the left v entricle. Transmitral Doppler flow pattern is abnormal. No left ventricle thrombus noted on this stud y. There is no ventricular septal defect visualized. There is no left ventricular aneurysm. There is no mass noted in the left ventricle. RIGHT VENTRICLE The right ventricle is normal size. There is normal right ventricular wall thickness. The right ventr icular systolic function is normal. There are device leads in the right ventricle and atria. ATRIA The left atrium size is normal. The right atrium size is normal. The interatrial septum is intact wit h no evidence for an atrial septal defect or patent foramen ovale as noted on 2-D or Doppler imaging. AORTIC VALVE The aortic valve is mildly calcified. Doppler and Color Flow revealed no significant aortic regurgita tion. There is no significant aortic valvular stenosis. There is no aortic valvular vegetation. MITRAL VALVE The mitral valve is mildly thickened. There is no evidence of mitral valve prolapse. There is no mitr al valve stenosis. Doppler and Color-flow revealed mild mitral regurgitation. TRICUSPID VALVE The tricuspid valve is normal in structure and function. Doppler and Color Flow revealed mild tricusp id regurgitation. There is no tricuspid valve prolapse or vegetation. There is no tricuspid valve eric nosis. PULMONIC VALVE The pulmonary valve is normal in structure and function. There is no pulmonic valvular regurgitation. There is no pulmonic valvular stenosis. GREAT VESSELS The aortic root is normal in size. The ascending aorta is normal in size. The pulmonary artery is nor mal. The IVC is normal in size and collapses >50% with inspiration. PERICARDIAL EFFUSION There is no pleural effusion. The pericardium appears normal. Critical Notification Critical Value: No <Conclusion> The Left Ventricle is borderline dilated. LV systolic function is decreased. LV ejection fraction is 35 to 40%. There is global hypokinesis of the left ventricle. There are device leads in the right ventricle and atria. Doppler and Color Flow revealed no significant aortic regurgitation. There is no significant aortic valvular stenosis. Doppler and Color-flow revealed mild mitral regurgitation. Doppler and Color Flow revealed mild tricuspid regurgitation. Signed by : Telly Levine MD Electronically Approved : 03/06/2022 17:19:13
== END ==
LOC: ECHO 12:45
PROVIDERS: ATTEND Internal Medicine Cardiovascular Disease
DX: I08.1 Rheumatic disorders of both mitral and tricuspid valves (principal); I50.22 Chronic systolic (congestive) heart failure
CPT/HCPCS: 93306; C8929